=== PATIENT | female | born 1970 | race Caucasian/White ===

== ENCOUNTER 2016-12-26 09:13 | Emergency (ER) | payer MEDICAID ==
[2016-12-26] MEDS ORDERED: Ketorolac 60 MG/2 ML SDV IM ONE (09:41)
--- NOTE | 2016-12-26 09:41 | EDM.PDOC ---
ED HISTORY OF PRESENT ILLNESS - General Chief Complaint: Chest Pain Stated Complaint: CHEST PAIN Time Seen by Provider: 12/26/16 09:27 Source: Reports: Patient, Old records, RN notes reviewed History Limitations: Reports: No limitations - History of Present Illness INITIAL COMMENTS - FREE TEXT/NARRATIVE: 46-year-old female presents emergency Department a complaint of chest pain and palpitations, she has had palpitations in the past going on for some time for this particular event chest pain it's been on-and-off for the last 2 weeks she did have a follow up appointment with her primary care provider today in clinic however at triage she was recommended to report to emergency department for further evaluation. She states the chest pain will come and go it is variable at times at rest and also happens with exertion she does feel short of breath she is not nauseated or diaphoretic the pain is predominately around her left breast area she denies any recent trauma or lifting activities no history of stress test no history of cardiac disease - Related Data Allergies/ADRs: Allergies Allergy/AdvReac Type Severity Reaction Status Date / Time Penicillins Allergy Severe Difficulty Verified 11/23/15 13:49 Breathing amoxicillin [Amoxicillin] Allergy Intermediate Difficulty Verified 11/23/15 13: 49 Breathing clarithromycin [From Biaxin] Allergy Intermediate Rash Verified 11/23/15 13:49 Home Meds: Home Meds Amphetamine/Dextroamphetamine [Adderall] 20 mg PO DAILY 01/08/14 [History] Venlafaxine [Effexor] 75 mg PO DAILY 01/08/14 [History] Venlafaxine [Effexor XR 24 Hr] 37.5 mg PO DAILY 01/10/14 [History] Ibuprofen 800 mg PO ASDIRECTED PRN 09/20/15 [History] Dextroamphetamine/Amphetamine [Adderall Xr 20 mg Capsule] 20 mg PO DAILY [History] 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: , Other (see below) Other OB/BYN History: c-sections x3; hysterectomy approx 12 years ago Musculoskeletal History: Reports: Back pain, chronic Psychiatric History: Reports: Anxiety, Depression Oncologic (Cancer) History: Reports: Cervix - Infectious Disease History Infectious Disease History: Reports: Chicken pox - Past Surgical History Other Female Surgeries/Procedures: KANDICE with left salpingo-oophorectomy Musculoskeletal Surgical History: Reports: Other (see below) Other Musculoskeletal Surgeries/Procedures:: back surgery x2 Oncologic Surgical History: Reports: Other (see below) Other Oncologic Surgeries/Procedures: hysterectomy Social & Family History - Family History Family Medical History: Noncontributory - Tobacco Use Smoking Status *Q: Never Smoker Second Hand Smoke Exposure: No - Caffeine Use Caffeine Use: Reports: Coffee - Alcohol Use Days Per Week of Alcohol Use: 1 Number of Drinks Per Day: 1 Total Drinks Per Week: 1 - Recreational Drug Use Recreational Drug Use: No ED ROS GENERAL - Review of Systems Review Of Systems: See Below Constitutional: Reports: no symptoms HEENT: Reports: No symptoms Respiratory: Reports: shortness of breath. Denies: cough, sputum Cardiovascular: Reports: Chest pain, Dyspnea on exertion GI/Abdominal: Reports: No symptoms : Reports: no symptoms Musculoskeletal: Reports: no symptoms Skin: Reports: no symptoms Neurological: Reports: no symptoms Psychiatric: Denies: Anxiety ED EXAM, GENERAL - Physical Exam Exam: See Below Free Text/Narrative:: General: Female, not in any distress, alert and oriented x3 HEENT: head is atraumatic normocephalic, eyes pupils equal round reactive to light and accommodation sclera clear no conjunctivitis appreciated. Ears tympanic membranes clear and odonnell landmarks and light reflex are present bilaterally canals are clear. Nose no septal deviation, nares are clear, no blood present. Mouth mucosa is moist and pink no erythema or exudate noted in soft palate, tongue is midline uvula is midline, dentition is intact. Neck: Supple no thyromegaly no tracheal deviation. Nodes: Cervical nodes subclavicular nodes nontender no palpable lymphadenopathy noted. Lungs: clear to auscultation bilaterally with symmetrical respirations, no adventitious noise appreciated. CV: Regular rate and rhythm S1 and S2 appreciated no murmurs rubs or gallops noted. Abdomen: Soft, nontender, no palpable masses or organomegaly appreciated, no distention no guarding bowel sounds are present, . Neuro: Cranial nerves II through XII grossly intact Skin: Warm and dry, intact Extremities: No lower extremity edema appreciated, Course - Vital Signs Last Recorded V/S: Last Vital Signs Temp 96.3 F 12/26/16 09:19 Pulse 72 12/26/16 10:23 Resp 20 12/26/16 10:23 BP 133/88 12/26/16 10:23 Pulse Ox 98 12/26/16 10:23 - Orders/Labs/Meds Orders: Active Orders 24 hr Category Date Time Status Cardiac Monitoring [RC] .As Directed Care 12/26/16 09:34 Active EKG Documentation Completion [RC] ASDIRECTED Care 12/26/16 09:37 Active EKG 12 Lead [EK] Stat Ther 12/26/16 09:37 Ordered Labs: Laboratory Tests 12/26/16 12/26/16 12/26/16 Range/Units 09:47 09:47 09:47 WBC 7.0 (4.5-11.0) K/uL RBC 4.25 (3.30-5.50) M/uL Hgb 13.6 (12.0-15.0) g/dL Hct 40.1 (36.0-48.0) % MCV 94 (80-98) fL MCH 32 H (27-31) pg MCHC 34 (32-36) % Plt Count 276 (150-400) K/uL Neut % (Auto) 54 (36-66) % Lymph % (Auto) 37 (24-44) % [place] % (Auto) 7 H (2-6) % Eos % (Auto) 1 L (2-4) % Baso % (Auto) 1 (0-1) % Sodium 141 (140-148) mmol/L Potassium 3.8 (3.6-5.2) mmol/L Chloride 105 (100-108) mmol/L Carbon Dioxide 28 (21-32) mmol/L Anion Gap 8.1 (5.0-14.0) mmol/L BUN 13 (7-18) mg/dL Creatinine 0.8 (0.6-1.0) mg/dL Est Cr Clr Drug Dosing 70.24 mL/min Estimated GFR (MDRD) > 60 (>60) Glucose 87 (74-106) mg/dL Calcium 8.8 (8.5-10.1) mg/dL Total Bilirubin 0.4 D (0.2-1.0) mg/dL AST 15 (15-37) U/L ALT 27 (12-78) U/L Alkaline Phosphatase 37 L (46-116) U/L Troponin I < 0.017 (0.000-0.056) ng/mL Total Protein 7.0 (6.4-8.2) g/dL Albumin 3.7 (3.4-5.0) g/dL Globulin 3.3 (2.3-3.5) g/dL Albumin/Globulin Ratio 1.1 L (1.2-2.2) TSH, Ultra Sensitive 1.430 (0.358-3.740) uIU/mL Meds: Medications Discontinued Medications Generic Name Dose Route Start Last Admin Trade Name Jacques PRN Reason Stop Dose Admin Ketorolac Tromethamine 60 mg 12/26/16 09:41 12/26/16 09:45 Toradol IM 12/26/16 09:42 60 mg ONETIME ONE Administration Departure - Departure Time of Disposition: 11:10 Disposition: Home, Self-Care 01 Condition: good Clinical Impression: Chest pain Qualifiers: Chest pain type: unspecified Qualified Code(s): R07.9 - Chest pain, unspecified Forms: ED Department Discharge Additional Instructions: Try the Flexeril as needed for muscle relaxants if it helps with pain, please follow up with her primary care provider this afternoon for further evaluation, the hospital we'll call you with an appointment time for your stress test. - My Orders Last 24 Hours: My Active Orders 12/26/16 09:34 Cardiac Monitoring [RC] .As Directed 12/26/16 09:37 EKG Documentation Completion [RC] ASDIRECTED EKG 12 Lead [EK] Stat - Assessment/Plan Last 24 Hours: My Active Orders 12/26/16 09:34 Cardiac Monitoring [RC] .As Directed 12/26/16 09:37 EKG Documentation Completion [RC] ASDIRECTED EKG 12 Lead [EK] Stat Plan: Assessment Acuity = acute Site and laterality = chest pain left shoulder pain Etiology = unclear etiology Manifestations = none Location of injury = home Lab values = CBC, CMP, EKG, chest x-ray showed no acute process Plan I did review lab work EKG and chest x-ray results of her discussed options recommend keep her followup appointment with her primary care this afternoon, we did set up a stress test in the future exercise Cardiolite also prescription for Flexeril 10 mg by mouth 3 times a day when necessary Patient was in agreement with the plan all questions were answered, they were instructed to return to the emergency department or call for worsening symptoms. This note was dictated using [employer] voice recognition software please call with any questions.
--- NOTE | 2016-12-26 10:05 | CR ---
Chest 2V HISTORY: Chest pain COMPARISON: 09/20/2015. FINDINGS: Cardiac size and pulmonary vessels normal. There are no infiltrates or effusions. No pneum othorax. The osseous structures appear normal. IMPRESSION: No acute pulmonary disease.
[2016-12-26 10:24] VITALS: BP 133/88
== END 2016-12-26 11:27 | disposition home or self-care (01) ==
LOC: JP.ED 09:13
DX: R07.9 Chest pain, unspecified (principal); F32.9 Major depressive disorder, single episode, unspecified; F41.9 Anxiety disorder, unspecified; Z90.710 Acquired absence of both cervix and uterus; Z85.41 Personal history of malignant neoplasm of cervix uteri; Z79.899 Other long term (current) drug therapy; Z88.0 Allergy status to penicillin; Z88.1 Allergy status to other antibiotic agents
CPT/HCPCS: 36415; 71020; 80053; 84443; 84484; 85025; 93005; 96372; 99285; J1885

== ENCOUNTER 2017-09-05 07:29 | Day surgery (SDC) | payer MEDICAID ==
[2017-09-05] MEDS ORDERED: Dextrose 5%-Lactated Ringers 1,000 ML IV SCH (08:00)
[2017-09-05] MEDS ORDERED: Glycopyrrolate 0.2 MG/ML 2 ML SDV IVPUSH ONE (08:00)
[2017-09-05] MEDS ORDERED: Midazolam 1 MG/ML 2 ML SDV ONE (10:01)
[2017-09-05] MEDS ORDERED: Propofol 200 MG/20 ML SDV ONE (10:01)
[2017-09-05] MEDS ORDERED: fentaNYL 100 MCG/2 ML SDV ONE (10:01)
[2017-09-05 11:14] VITALS: BP 121/94
--- NOTE | 2017-09-07 13:08 | OR ---
DATE OF PROCEDURE: 09/05/2017 PREOPERATIVE DIAGNOSIS: Recurrent heartburn status post Carol Ann fundoplication. POSTOPERATIVE DIAGNOSES: 1. Intact Carol Ann fundoplication with mild recurrent inflammation at the esophagogastric junction. 2. Large amount of retained gastric food particles with bile consistent with gastroparesis. OPERATIVE PROCEDURE: Esophagogastroduodenoscopy with biopsy of the esophagogastric junction. ANESTHESIA: IV sedation. INDICATIONS FOR PROCEDURE: The patient is status post Carol Ann fundoplication in 2002. She presents now with some worsening heartburn symptoms. Once again, she was prescribed omeprazole, but this was just yesterday and she has not started that yet. Plan is to proceed with upper GI endoscopy with biopsies as indicated. Potential risks including bleeding and perforation were discussed, and the patient wishes to proceed. DETAILS OF PROCEDURE: The patient was taken to the operating room and placed in a left lateral decubitus position. IV sedation was administered after which the upper GI endoscope was passed orally through the length of the esophagus into the stomach with retroflexion view of the fundus, thereafter, through the pyloric channel roughly to the junction of the 3rd and 4th portions of the duodenum. Findings included normal hypopharynx, larynx, and upper esophageal sphincter, and esophageal body at the EG junction. There was a persistent intact Carol Ann effect over the distalmost esophagus. There was however some evidence of recurrent reflux disease in terms of mucosa being somewhat friable and reddened and edematous. The scope easily passed through the Carol Ann and retroflexion once again confirmed the Carol Ann effect. Within the stomach, it was remarkable there was quite a bit in the way of retained bile as well as some solid food particles suggestive of a component of gastroparesis. Otherwise, the stomach was not significantly inflamed and the pyloric channel and the duodenum to the junction of the 3rd and 4th portions were unremarkable. At this point, biopsies were obtained from the EG junction area, sent for histologic evaluation. Minimal bleeding from the biopsy site was seen and the procedure was then concluded. The patient will be initiated on the omeprazole treatment and we will just see to what extent that is efficacious. Follow up will be with Dr. Frias at [facility] to see how that is going and then develop treatment plan from that point forward. Bebeto Frias MD /[id number]
== END 2017-09-05 11:32 | disposition home or self-care (01) ==
LOC: JP.SDS 07:29
PROVIDERS: ATTEND Surgery
DX: K21.9 Gastro-esophageal reflux disease without esophagitis (principal); Z88.0 Allergy status to penicillin; Z88.1 Allergy status to other antibiotic agents; Z98.890 Other specified postprocedural states
CPT/HCPCS: 43239; J2250; J2704; J3010; J7042; 88305; J3490

== ENCOUNTER 2017-11-10 05:32 | Inpatient (IN) | payer MEDICAID ==
[2017-11-10] MEDS ORDERED: Dextrose 5%-Lactated Ringers 1,000 ML IV SCH (06:00)
[2017-11-10] MEDS ORDERED: Celecoxib 200 MG Cap PO ONE (06:00)
[2017-11-10] MEDS ORDERED: Acetaminophen 500 MG Tab PO ONE (06:00)
[2017-11-10] MEDS ORDERED: Gabapentin 300 MG Cap PO ONE (06:00)
[2017-11-10] MEDS ORDERED: Scopolamine 1.5 MG Transdermal Patch TOP SCH (06:00)
[2017-11-10] MEDS ORDERED: Neostigmine Methylsulfate 1 MG/ML 5 ML Syringe ONE (07:10)
[2017-11-10] MEDS ORDERED: Dexamethasone 4 MG/ML SDV ONE (07:10)
[2017-11-10] MEDS ORDERED: Propofol 200 MG/20 ML SDV ONE (07:10)
[2017-11-10] MEDS ORDERED: Succinylcholine 200 MG/10 ML MDV ONE (07:10)
[2017-11-10] MEDS ORDERED: Rocuronium 50 MG/5 ML Vial ONE (07:10)
[2017-11-10] MEDS ORDERED: Glycopyrrolate 0.2 MG/ML 5 ML MDV ONE (07:10)
[2017-11-10] MEDS ORDERED: Ondansetron 4 MG/2 ML SDV ONE (07:10)
[2017-11-10] MEDS ORDERED: Lactated Ringers 1,000 ML ONE ×2 (07:14→08:23)
[2017-11-10] MEDS ORDERED: cefOXitin 2 GM in Sodium Chloride 0.9% 50 ML IV ONE (08:00)
[2017-11-10] MEDS ORDERED: Ketamine 500 MG/5 ML MDV IV SCH (08:00)
[2017-11-10] MEDS ORDERED: Lidocaine 2% 100 MG/5 ML Syringe IVPUSH ONE (08:00)
[2017-11-10] MEDS ORDERED: Ropivacaine 40 ML, Dexamethasone 8 MG, EPINEPHrine 0.4 MG, Sodium Chloride 0.9% 37.6 ML NERVRT SCH ×4 (08:00)
[2017-11-10] MEDS ORDERED: cefOXitin 2 GM Vial ONE (08:24)
[2017-11-10] MEDS ORDERED: hydrOXYzine HCl 100 MG/2 ML SDV IM ONE (10:00)
[2017-11-10] MEDS ORDERED: fentaNYL 100 MCG/2 ML SDV IVPUSH ONE (10:40)
[2017-11-10] MEDS ORDERED: Pantoprazole 40 MG Vial IVPUSH SCH (12:00)
[2017-11-10] MEDS ORDERED: hydrOXYzine HCl 100 MG/2 ML SDV IM PRN (12:00)
[2017-11-10] MEDS ORDERED: diphenhydrAMINE 50 MG/ML SDV IVPUSH PRN (12:00)
[2017-11-10] MEDS ORDERED: Labetalol 20 MG/4 ML Syringe IVPUSH PRN (12:00)
[2017-11-10] MEDS ORDERED: Metoclopramide 10 MG/2 ML SDV IVPUSH PRN (12:00)
[2017-11-10] MEDS: Lidocaine 0.4%/D5W 2 GM/500 ML BAG IV SCH (12:47)
[2017-11-10] MEDS: Acetaminophen Soln 650 MG/20.3 ML UD Cup PO SCH ×2 (12:47→17:42)
[2017-11-10] MEDS: Dextrose 5%-Lactated Ringers 1,000 ML IV SCH ×2 (13:05→22:28)
[2017-11-10] MEDS: Gabapentin 250 MG/5 ML Solution ML 470 ML Bottle PO SCH ×2 (14:01→20:11)
[2017-11-10] MEDS: cefOXitin 2 GM in Sodium Chloride 0.9% 50 ML IV SCH ×2 (14:01→20:10)
[2017-11-10] MEDS ORDERED: MVI, Adult with Vitamin K 10 ML, Thiamine 200 MG, Chromium/Copper/Mang/Selen/Zn 1 ML in... IV SCH ×4 (16:00)
[2017-11-10] MEDS: Heparin Sodium 5,000 Units/ML Vial SUBCUT SCH (17:41)
[2017-11-10] MEDS: Ondansetron 4 MG/2 ML SDV IVPUSH PRN (17:46)
[2017-11-11] MEDS: Lidocaine 0.4%/D5W 2 GM/500 ML BAG IV SCH (00:14)
[2017-11-11] MEDS: Acetaminophen Soln 650 MG/20.3 ML UD Cup PO SCH ×4 (00:16→18:00)
[2017-11-11] MEDS: cefOXitin 2 GM in Sodium Chloride 0.9% 50 ML IV SCH ×2 (01:46→09:39)
[2017-11-11] MEDS ORDERED: Iohexol 647 MG/ML 50 ML SDV PO STA (03:19)
[2017-11-11] MEDS: Ondansetron 4 MG/2 ML SDV IVPUSH PRN ×2 (04:12→11:34)
[2017-11-11] MEDS: Heparin Sodium 5,000 Units/ML Vial SUBCUT SCH ×2 (05:10→18:00)
[2017-11-11] MEDS: Dextrose 5%-Lactated Ringers 1,000 ML IV SCH (05:10)
--- NOTE | 2017-11-11 07:34 | PCM.SURGPN ---
- General Info Date of Service: 11/11/17 Date of Surgery/Procedure: 11/10/17 POD#: 1 Post-Op Diagnosis: Carol Ann funduplocation repair and scarlett-en-y revision Functional Status: Reports: Pain Controlled, Tolerating Diet - Review of Systems General: Reports: No Symptoms Pulmonary: Reports: No Symptoms Cardiovascular: Reports: No Symptoms Gastrointestinal: Reports: Difficulty Swallowing Genitourinary: Reports: No Symptoms Psychiatric: Reports: No Symptoms - Patient Data Vitals - Most Recent: Last Vital Signs Temp 99 F 11/11/17 05:00 Pulse 92 11/11/17 07:00 Resp 18 11/11/17 07:00 BP 132/70 11/11/17 07:00 Pulse Ox 93 L 11/11/17 07:00 Weight - Most Recent: 176 lb 12.795 oz I&O - Last 24 Hours: Intake & Output 11/10/17 11/11/17 11/11/17 22:59 06:59 14:59 Intake Total 2362 1195 Output Total 60 590 Balance 2302 605 Med Orders - Current: Current Medications Acetaminophen (Tylenol) 650 mg PO Q6H [facility] Last Admin: 11/11/17 05:10 Dose: 650 mg Celecoxib (Celebrex) 200 mg PO DAILY@0800 [facility] Cyanocobalamin (Vitamin B12) 1,000 mcg IM ONETIME ONE Stop: 11/12/17 09:01 Diphenhydramine HCl (Benadryl) 25 - 50 mg IVPUSH Q4H PRN PRN Reason: ITCHING Gabapentin (Neurontin) 300 mg PO TID [facility] Last Admin: 11/10/17 20:11 Dose: 300 mg Heparin Sodium (Porcine) (Heparin Sodium) 5,000 units SUBCUT Q12H [facility] Last Admin: 11/11/17 05:10 Dose: 5,000 units Hydroxyzine HCl (Vistaril) 75 - 100 mg IM Q4H PRN PRN Reason: pain Lidocaine HCl/Dextrose (Lidocaine 2 Gm/D5w 500 Ml) 2 gm in 500 mls @ 30 mls/hr IV .[id number] [facility] PRN Reason: 2 MG/MIN Stop: 11/11/17 11:00 Last Admin: 11/11/17 00:14 Dose: 2 mg/min, 30 mls/hr Dextrose/Lactated Ringer's (Dextrose 5%-Lactated Ringers) 1,000 mls @ 175 mls/ hr IV ASDIRECTED [facility] Last Admin: 11/11/17 05:10 Dose: 175 mls/hr Multivitamins/Minerals 10 ml/Thiamine HCl 200 mg/ Chromium/Copper/Manganese/ Seleni/Zn 1 ml/ Dextrose/Lactated Ringer's 1,013 mls @ 175 mls/hr IV DAILY@ 1600 [facility] Last Admin: 11/10/17 16:11 Dose: 175 mls/hr Cefoxitin Sodium 2 gm/ Sodium (Chloride) 50 mls @ 100 mls/hr IV Q6H [facility] Stop: 11/11/17 08:29 Last Admin: 11/11/17 01:46 Dose: 100 mls/hr Labetalol HCl (Normodyne) 5 - 15 mg IVPUSH Q1H PRN PRN Reason: SBP over 160 OR DBP over 95 Metoclopramide HCl (Reglan) 10 mg IVPUSH Q6H PRN PRN Reason: NAUSEA NOT CONTROL BY ZOFRAN Miscellaneous Information (Remove Patch) 1 ea TRDERM ONETIME ONE Stop: 11/12/17 10:01 Scopolamine Patch (Check) 1 each TOP DAILY [facility] Stop: 11/12/17 12:01 Ondansetron HCl (Zofran) 4 mg IVPUSH Q4H PRN PRN Reason: Nausea/Vomiting Last Admin: 11/11/17 04:12 Dose: 4 mg Pantoprazole Sodium (Protonix Iv) 40 mg IVPUSH Q24H [facility] Last Admin: 11/10/17 12:47 Dose: 40 mg Scopolamine (Transderm-Scop) 1.5 mg TOP Q72H [facility] Stop: 11/12/17 10:00 Last Admin: 11/10/17 05:59 Dose: 1.5 mg Discontinued Medications Acetaminophen (Tylenol Extra Strength) 1,000 mg PO ONETIME ONE Stop: 11/10/17 06:01 Last Admin: 11/10/17 05:59 Dose: 1,000 mg Cefoxitin Sodium (Mefoxin) Confirm Administered Dose 2 gm .ROUTE .STK-MED ONE Stop: 11/10/17 08:25 Last Admin: 11/10/17 10:34 Dose: 2 gm Celecoxib (Celebrex) 200 mg PO ONETIME ONE Stop: 11/10/17 06:01 Last Admin: 11/10/17 05:59 Dose: 200 mg Ropivacaine 40 ml/Dexamethasone 8 mg/Epinephrine HCl 0.4 mg/ Sodium Chloride 37.6 ml 0 ml [facility] Last Admin: 11/10/17 07:50 Dose: 80 syringe Dexamethasone (Dexamethasone) Confirm Administered Dose 4 mg .ROUTE .[facility] ONE Stop: 11/10/17 07:11 Fentanyl (Sublimaze) 100 mcg IVPUSH ONETIME ONE Stop: 11/10/17 10:41 Last Admin: 11/10/17 10:33 Dose: 100 mcg Fentanyl Citrate (Fentanyl) Confirm Administered Dose 500 mcg .ROUTE .[facility] ONE Stop: 11/10/17 07:10 Gabapentin (Neurontin) 300 mg PO ONETIME ONE Stop: 11/10/17 06:01 Last Admin: 11/10/17 05:59 Dose: 300 mg Glycopyrrolate (Robinul) Confirm Administered Dose 1 mg .ROUTE .[facility] ONE Stop: 11/10/17 07:11 Hydroxyzine HCl (Vistaril) 100 mg IM ONETIME ONE Stop: 11/10/17 10:01 Last Admin: 11/10/17 10:10 Dose: 100 mg Dextrose/Lactated Ringer's (Dextrose 5%-Lactated Ringers) 1,000 mls @ 100 mls[facility] Admin: 11/10/17 07:00 Dose: 100 mls/hr Cefoxitin Sodium 2 gm/ Sodium (Chloride) 50 mls @ 100 mls/hr IV ONETIME ONE Stop: 11/10/17 08:29 Last Admin: 11/10/17 07:50 Dose: 100 mls/hr Ketamine HCl 100 mg/ Sodium (Chloride) 100 mls @ 15 mls/hr IV [facility] PRN Reason: 5 MCG/KG/MIN Lactated Ringer's (Ringers, Lactated) Confirm Administered Dose 1,000 mls @ as directed .ROUTE .[facility] ONE Stop: 11/10/17 07:15 Lactated Ringer's (Ringers, Lactated) Confirm Administered Dose 1,000 mls @ as directed .ROUTE .[facility] ONE Stop: 11/10/17 08:24 Iohexol (Omnipaque-300) 50 ml PO .ASDIRECTED STA Stop: 11/11/17 03:20 Ketamine HCl (Ketalar) 25 mg IV ASDIRECTED [facility] Lidocaine HCl (Xylocaine 2%) 90 mg IVPUSH ONETIME ONE Stop: 11/10/17 08:01 Last Admin: 11/10/17 12:40 Dose: Not Given Neostigmine Methylsulfate (Neostigmine) Confirm Administered Dose 5 mg .ROUTE .STK-MED ONE Stop: 11/10/17 07:11 Ondansetron HCl (Zofran) Confirm Administered Dose 4 mg .ROUTE .STK-MED ONE Stop: 11/10/17 07:11 Propofol (Diprivan 20 Ml) Confirm Administered Dose 200 mg .ROUTE .STK-MED ONE Stop: 11/10/17 07:11 Rocuronium Hibbs (Zemuron) Confirm Administered Dose 50 mg .ROUTE .STK-MED ONE Stop: 11/10/17 07:11 Succinylcholine Chloride (Quelicin) Confirm Administered Dose 200 mg .ROUTE .STK -MED ONE Stop: 11/10/17 07:11 - Exam Wound/Incisions: Healing Well General: Alert, Oriented Neck: Supple Lungs: Clear to Auscultation, Normal Respiratory Effort Cardiovascular: Regular Rate, Regular Rhythm Neurological: No New Focal Deficit Psy/Mental Status: Alert, Normal Affect, Normal Mood - Problem List Review Problem List Initiated/Reviewed/Updated: Yes - My Orders Last 24 Hours: Active Orders 24 hr Category Date Time Status Patient Status [ADT] Routine ADT 11/10/17 10:10 Active Ambulate [RC] PER UNIT ROUTINE Care 11/10/17 11:48 Active Cardiac Monitoring Discontinue [RC] Click to Edit Care 11/11/17 09:00 Active Cardiac Monitoring [RC] .As Directed Care 11/10/17 11:48 Active Communication Order [RC] ASDIRECTED Care 11/12/17 04:00 Active Communication Order [RC] Q4H Care 11/10/17 11:48 Active Communication Order [RC] ROUTINE Care 11/10/17 11:48 Active Drain Management [RC] ASDIRECTED Care 11/10/17 11:48 Active Notify Provider Intake and Out [RC] ASDIRECTED Care 11/10/17 11:48 Active Notify Provider [RC] PRN Care 11/10/17 11:48 Active Oxygen Therapy [RC] ASDIRECTED Care 11/10/17 11:48 Active Pulse Oximetry [RC] ASDIRECTED Care 11/10/17 11:48 Active RT BiPAP/CPAP [RC] ASDIRECTED Care 11/10/17 11:48 Active RT Incentive Spirometry [RC] ASDIRECTED Care 11/10/17 11:48 Active Turn, Cough, Deep Breathe [RC] .PRN Care 11/10/17 11:48 Active Up to Chair [RC] QID Care 11/10/17 11:48 Active Vital Signs [RC] Q1HR Care 11/10/17 11:48 Active Consult to Bariatric Services [CONS] Routine Cons 11/10/17 11:48 Active Consult to Abnormal Psychology Teacher [CONS] Routine Cons 11/10/17 11:48 Active Consult to Pharmacy [CONS] Routine Cons 11/10/17 11:48 Active Bariatric Diet [DIET] Diet 11/10/17 Dinner Active UGI wo KUB [CR] Timed Exams 11/11/17 04:00 Taken Acetaminophen [Tylenol] Med 11/10/17 12:00 Active 650 mg PO Q6H Celecoxib [CeleBREX] Med 11/11/17 08:00 Active 200 mg PO DAILY@0800 Cyanocobalamin (Vitamin B12) [Vitamin B12] Med 11/12/17 09:00 Once 1,000 mcg IM ONETIME ONE Dextrose 5%-Lactated Ringers 1,000 ml Med 11/10/17 12:00 Active IV ASDIRECTED Gabapentin [Neurontin] Med 11/10/17 14:00 Active 300 mg PO TID Heparin Sodium Med 11/10/17 18:00 Active 5,000 units SUBCUT Q12H Labetalol [Normodyne] Med 11/10/17 12:00 Active 5 - 15 mg IVPUSH Q1H PRN Lidocaine 0.4%/D5W [Lidocaine 2 GM/D5W 500 ML] Med 11/10/17 08:00 Active 2 gm in 500 ml IV 2 mg/min MVI, Adult with Vitamin K [Infuvite Adult] 10 ml Med 11/10/17 16:00 Active Thiamine [Vitamin B-1] 200 mg Chromium/Copper/Riki/Selen/Zn [Multitrace-5 Concentrate ] 1 ml Dextrose 5%-Lactated Ringers 1,000 ml IV DAILY@1600 Metoclopramide [Reglan] Med 11/10/17 12:00 Active 10 mg IVPUSH Q6H PRN Non-Formulary Medication [NF Drug] Med 11/10/17 12:00 Active 1 each TOP DAILY Ondansetron [Zofran] Med 11/10/17 12:00 Active 4 mg IVPUSH Q4H PRN Pantoprazole [ProTONIX IV] Med 11/10/17 12:00 Active 40 mg IVPUSH Q24H Remove Patch Med 11/12/17 10:00 Once 1 ea TRDERM ONETIME ONE cefOXitin [Mefoxin] 2 gm Med 11/10/17 14:00 Active Sodium Chloride 0.9% [Normal Saline] 50 ml IV Q6H diphenhydrAMINE [Benadryl] Med 11/10/17 12:00 Active 25 - 50 mg IVPUSH Q4H PRN hydrOXYzine HCl [Vistaril] Med 11/10/17 12:00 Active 75 - 100 mg IM Q4H PRN Abdominal Binder [OM.PC] Routine Oth 11/10/17 11:48 Ordered PT Screening [OM.PC] Routine Oth 11/10/17 11:48 Active Sequential Compression Device [OM.PC] Routine Oth 11/10/17 11:48 Ordered Specialty Bed [OM.PC] Routine Oth 11/10/17 11:48 Ordered Resuscitation Status Routine Resus Stat 11/10/17 11:47 Ordered Medication Orders Acetaminophen (Tylenol) 650 mg PO Q6H [facility] Last Admin: 11/11/17 05:10 Dose: 650 mg Admin: 11/11/17 00:16 Dose: Not Given Admin: 11/10/17 17:42 Dose: 650 mg Admin: 11/10/17 12:47 Dose: 650 mg Celecoxib (Celebrex) 200 mg PO DAILY@0800 [facility] Cyanocobalamin (Vitamin B12) 1,000 mcg IM ONETIME ONE Stop: 11/12/17 09:01 Diphenhydramine HCl (Benadryl) 25 - 50 mg IVPUSH Q4H PRN PRN Reason: ITCHING Gabapentin (Neurontin) 300 mg PO TID [facility] Last Admin: 11/10/17 20:11 Dose: 300 mg Admin: 11/10/17 14:01 Dose: 300 mg Heparin Sodium (Porcine) (Heparin Sodium) 5,000 units SUBCUT Q12H [facility] Last Admin: 11/11/17 05:10 Dose: 5,000 units Admin: 11/10/17 17:41 Dose: 5,000 units Hydroxyzine HCl (Vistaril) 75 - 100 mg IM Q4H PRN PRN Reason: pain Lidocaine HCl/Dextrose (Lidocaine 2 Gm/D5w 500 Ml) 2 gm in 500 mls @ 30 mls/hr IV .[id number] [facility] PRN Reason: 2 MG/MIN Stop: 11/11/17 11:00 Last Admin: 11/11/17 00:14 Dose: 2 mg/min, 30 mls/hr Infusion: 11/11/17 00:14 Dose: 2 mg/min, 30 mls/hr Admin: 11/10/17 12:47 Dose: 2 mg/min, 30 mls/hr Dextrose/Lactated Ringer's (Dextrose 5%-Lactated Ringers) 1,000 mls @ 175 mls/ hr IV ASDIRECTED [facility] Last Admin: 11/11/17 05:10 Dose: 175 mls/hr Infusion: 11/11/17 04:11 Dose: 175 mls/hr Admin: 11/10/17 22:28 Dose: 175 mls/hr Infusion: 11/10/17 18:48 Dose: 175 mls/hr Admin: 11/10/17 13:05 Dose: 175 mls/hr Multivitamins/Minerals 10 ml/Thiamine HCl 200 mg/ Chromium/Copper/Manganese/ Seleni/Zn 1 ml/ Dextrose/Lactated Ringer's 1,013 mls @ 175 mls/hr IV DAILY@ 1600 [facility] Last Admin: 11/10/17 16:11 Dose: 175 mls/hr Cefoxitin Sodium 2 gm/ Sodium (Chloride) 50 mls @ 100 mls/hr IV Q6H [facility] Stop: 11/11/17 08:29 Last Admin: 11/11/17 01:46 Dose: 100 mls/hr Admin: 11/10/17 20:10 Dose: 100 mls/hr Admin: 11/10/17 14:01 Dose: 100 mls/hr Labetalol HCl (Normodyne) 5 - 15 mg IVPUSH Q1H PRN PRN Reason: SBP over 160 OR DBP over 95 Metoclopramide HCl (Reglan) 10 mg IVPUSH Q6H PRN PRN Reason: NAUSEA NOT CONTROL BY ZOFRAN Miscellaneous Information (Remove Patch) 1 ea TRDERM ONETIME ONE Stop: 11/12/17 10:01 Scopolamine Patch (Check) 1 each TOP DAILY [facility] Stop: 11/12/17 12:01 Ondansetron HCl (Zofran) 4 mg IVPUSH Q4H PRN PRN Reason: Nausea/Vomiting Last Admin: 11/11/17 04:12 Dose: 4 mg Admin: 11/10/17 17:46 Dose: 4 mg Pantoprazole Sodium (Protonix Iv) 40 mg IVPUSH Q24H [facility] Last Admin: 11/10/17 12:47 Dose: 40 mg Scopolamine (Transderm-Scop) 1.5 mg TOP Q72H [facility] Stop: 11/12/17 10:00 Last Admin: 11/10/17 05:59 Dose: 1.5 mg - Assessment Assessment (Free Text/Narrative):: Difficulty swallowing--explained to pt this is to be expected. Ambulating well. Pain well-controlled with lidocaine and tylenol. Urinating-well Bowel movements/flatus-none Diet: clear liquids, transition to step 2 diet - Plan Plan (Free Text/Narrative):: Diet: Step 2 w/ no solids for 10d-2weeks Lungs: incentive spirometry 10times per hour every hour Ambulate 6X/day. [place] for pain control. Monitor urination/bowel movements. Dispo: discharge tomorrow Medical management: resume home meds
[2017-11-11] MEDS ORDERED: Dextrose 5%-Lactated Ringers 1,000 ML IV SCH (07:45)
--- NOTE | 2017-11-11 08:50 | CR ---
UGI wo KUB HISTORY: eval R -Y GBP FINDINGS: Limited upper GI series was obtained without fluoroscopy. Water-soluble contrast was admini stered orally. Immediate along with 15 minute delayed images were obtained. Small gastric pouch is de monstrated. Contrast passes readily through the gastrojejunostomy into loops of jejunum. No obstructi on is identified. There is no contrast extravasation. Surgical drain is noted left upper quadrant. Th ere are surgical clips right upper quadrant consistent with prior cholecystectomy. IMPRESSION: No postoperative complication identified status post Adelita-en-Y gastric bypass.
[2017-11-11] MEDS: Venlafaxine 37.5 MG Cap.ER PO SCH (09:39)
[2017-11-11] MEDS: Venlafaxine 75 MG Tab PO SCH (09:39)
[2017-11-11] MEDS: Gabapentin 250 MG/5 ML Solution ML 470 ML Bottle PO SCH ×3 (09:40→21:23)
[2017-11-11] MEDS: Amphetamine/Dextroamphetamine Salts 10 MG Cap.ER PO SCH (09:42)
[2017-11-11] MEDS: Celecoxib 200 MG Cap PO SCH (11:04)
[2017-11-11] MEDS: SCOPOLAMINE PATCH CHECK TOP SCH (11:20)
[2017-11-11] MEDS: Pantoprazole 40 MG Delayed-Release Granules 1 Packet PO SCH (13:30)
[2017-11-11] MEDS ORDERED: MVI, Adult with Vitamin K 10 ML, Thiamine 200 MG, Chromium/Copper/Mang/Selen/Zn 1 ML in... IV SCH ×4 (16:00)
[2017-11-12] MEDS: Acetaminophen Soln 650 MG/20.3 ML UD Cup PO SCH ×2 (02:06→05:57)
[2017-11-12] MEDS: Heparin Sodium 5,000 Units/ML Vial SUBCUT SCH (05:57)
[2017-11-12] MEDS: Celecoxib 200 MG Cap PO SCH (07:59)
[2017-11-12] MEDS: Venlafaxine 37.5 MG Cap.ER PO SCH (08:50)
[2017-11-12] MEDS: Venlafaxine 75 MG Tab PO SCH (08:50)
[2017-11-12] MEDS: SCOPOLAMINE PATCH CHECK TOP SCH (08:54)
[2017-11-12] MEDS: Amphetamine/Dextroamphetamine Salts 10 MG Cap.ER PO SCH (08:54)
[2017-11-12] MEDS: Gabapentin 250 MG/5 ML Solution ML 470 ML Bottle PO SCH (08:57)
[2017-11-12] MEDS ORDERED: Cyanocobalamin (Vitamin B12) 1,000 MCG/ML SDV IM ONE (09:00)
--- NOTE | 2017-11-12 09:26 | DISCH ---
ADMISSION DIAGNOSES: Failed Laparoscopic Carol Ann, ADD, ADHD, dysthymic disorder, physical deconditioning, obesity BMI 34.9, status post right L4-L5 diskectomy 12/20/2014. DISCHARGE DIAGNOSES: Diagnostic laparoscopy with takedown of previous Carol Ann fundoplication and esophageal gastrectomy with Adelita-en-Y jejunostomy and repair of recurrent diaphragmatic hernia for recurrent GERD within the proximal stomach and paraesophageal diaphragmatic hernia on 11/10/2017. HISTORY: Agueda Young had a laparoscopic Carol Ann with recurrent GERD refractory to medical management. After preoperative evaluation and discussion of the possible risks and possible complications, she wished to proceed with surgical procedure. HOSPITAL COURSE: Agueda had her surgery on 11/10/2017. She had no operative complications. On postop day #1, her upper GI was normal. She was started on a step-2 with no cereal gastric bypass diet. She received dietary instruction. On postop day #2, she was able to be discharged to home. Vital signs were stable, oral intake adequate, pain was well managed, and activity was good. PHYSICAL EXAMINATION: GENERAL: Agueda Young is a 47-year-old female. VITAL SIGNS: Height is 5 feet 1.8 inches. Weight is 176 pounds 12.79 ounces. TPR is 98.2, 88, 18. Blood pressure 115/87. HEENT: Negative. NECK: Supple. HEART: Regular rate and rhythm. LUNGS: Clear. ABDOMEN: Dressing was taken down. Sutures in place. KENYETTA drain is intact, draining a light pink serosanguineous drainage, and this will be removed prior to discharge. Abdominal binder has been on. EXTREMITIES: Without peripheral edema. DISPOSITION: Discharged to home. CONDITION: Stable and improving. FOLLOWUP: With Cristal Hart PA-C on 11/24/2017 at 10:00 a.m. DISCHARGE MEDICATIONS: New prescriptions: 1. Tylenol 650 mg q.6 hours p.r.n. pain. 2. Celebrex 200 mg p.o. daily #14. She is to resume her home medication of: 1. Adderall XR 20 mg p.o. daily. 2. Omeprazole 40 mg oral at bedtime. 3. Effexor XR 37.5 mg oral daily. 4. Effexor 75 mg oral daily. DISCHARGE DIET: Diet after discharge, step 2 gastric bypass diet with no cereal. Drink 8 to 10 glasses of water a day. ACTIVITY: As tolerated. No lifting greater than 10 pounds for 2 weeks. Driving, do not drive for 1 week. Shower/bathing, may shower. Notify provider if any fever, increased pain, nausea, or vomiting. Wound incision care, keep site clean and dry. Wear abdominal binder for 2 weeks and then as tolerated. Special instruction; use incentive spirometer 10 times every hour while awake for 2 weeks. Keep a journal of protein and liquid intake and bring to clinic appointments.
[2017-11-12 11:25] VITALS: BP 129/82
[2017-11-12] MEDS: Pantoprazole 40 MG Delayed-Release Granules 1 Packet PO SCH (12:41)
[2017-11-12] MEDS ORDERED: Acetaminophen 160 MG Tab,Disintegrating PO ONE (12:45)
--- NOTE | 2017-11-12 15:49 | PN ---
DATE OF SERVICE: 11/11/2017 The patient has been afebrile with stable vital signs, status post esophagogastrectomy for recurrent gastroesophageal reflux disease, yesterday. Clinically, no major problems were noted. She complains of a little bit of dysphagia as one might expect, but the upper GI x- ray looks good and is emptying satisfactorily with no evidence of leaks. She continues on the lidocaine infusion for another few hours, otherwise, is receiving the Celebrex and gabapentin. Will go up to a step-2 diet, but without any solids, maximize activity and work with pulmonary toilet. Bebeto Frias MD /[id number]
--- NOTE | 2017-11-13 11:20 | OR ---
DATE OF PROCEDURE: 11/10/2017 PREOPERATIVE DIAGNOSIS: Recurrent gastroesophageal reflux disease, status post previous Carol Ann fundoplication. POSTOPERATIVE DIAGNOSES: 1. Recurrent gastroesophageal reflux disease, status post previous Carol Ann fundoplication with proximal stomach and esophagogastric junction unsatisfactory for a redo Carol Ann fundoplication, status post takedown of previous fundoplication. 2. Paraesophageal diaphragmatic hernia. PROCEDURE PERFORMED: Diagnostic laparoscopy with takedown of previous Carol Ann fundoplication and: 1. Esophagogastrectomy with Adelita-en-Y esophagojejunostomy (41681). 2. Repair of recurrent diaphragmatic hernia (78341). ANESTHESIA: General. JEWELRY APPRAISER: Cristal Hart PA-C and MIGNON Crowe3. INDICATION FOR PROCEDURE: This is a 47-year-old female presenting with recurrent gastroesophageal reflux disease, several years after a previous Carol Ann fundoplication. Over the last couple years, she has had progressive reflux disease that has become refractory to medical management. She was also noted, on recent endoscopy, to have some retained food within the stomach, indicating probable component of gastroparesis as well. The plan is to proceed with a diagnostic laparoscopy with takedown of previous Carol Ann fundoplication and, based on operative findings, either redoing the Carol Ann fundoplication or in case the tissue, following takedown of the fundoplication, is unsatisfactory in terms of blood supply and general appearance, we would then proceed with a proximal gastrectomy or possible esophagogastrectomy, depending on the proximal plane of adequate tissue with a Adelita-en-Y reconstruction, which would also satisfactorily controlled the reflux symptoms. Potential risks of the procedure including bleeding, infection, leaks from various GI tract closures, problems with persistence or recurrence of reflux over time, as well as possibility of cardiopulmonary, septic, or hemorrhagic complications leading to were discussed, and the patient wishes to proceed. DETAILS OF PROCEDURE: The patient was taken to the operating room and placed in a supine position. After general endotracheal anesthesia was induced, she was converted to a lithotomy position and the abdomen prepped and draped. Three fingerbreadths left of the umbilicus, a transverse incision was made and the peritoneal cavity entered under direct vision with an Optiview trocar, inflated to 15 mmHg pressure of CO2. The patient was noted to have some minimal adhesions of the omentum to the right lateral abdominal wall, which would otherwise not impair the conduct of the procedure. Using direct visualization of the needle in the transverse abdominis plane, bilateral transverse abdominis plane blocks were placed in the subcostal location using the standard solution. Following this, 4 additional trocars were placed across the upper and mid abdomen, and additional exploration was undertaken. As one elevated the liver, adhesions were taken down, and the previous fundoplication was identified. The fundoplication was then gradually taken down with division of the soft tissue with a combination of Harmonic scalpel, electrocautery, and donna. Once the fundoplication was entirely taken down, it was felt that the portion of the stomach was significantly deserosalized and would not serve well for a redo fundoplication. The proximal end of the stomach and the esophagogastric junction were distinctly deserosalized due to adhesions to the wrap as it was taken down, and given this, the what appeared to be proximal end of safe tissue for subsequent anastomosis would be the esophagus just above the esophagogastric junction. At this point, the plane of dissection was established, and the esophagus was divided just above the esophagogastric junction with 2 firings of the Endo-PIO black loads. Following this, the area of previous fundoplication, as well as the gastric cardia and distalmost esophagus, were then sequentially resected with the blood supply being divided with Harmonic scalpel and the gastric division with a combination of black and purple loads. The specimen was then subsequently delivered with one large piece and one smaller piece of stomach and distalmost esophagus as part of the specimen. The patient was noted to have a recurrent diaphragmatic hernia, and a posterior crural repair was then accomplished at this point with a series of 0 Ethibond sutures reinforced with PTFE pledgets. At this point, the small bowel was identified at the ligament of Treitz and traced down 50 cm distal to that point. We chose that amount of distance in the event that the patient may at any point need a reoperation, and this would give us some leeway in terms of the biliopancreatic limb. The small bowel was divided at that point and then traced down an additional 100 cm, where the [id number] enteroenterostomy was accomplished with internal firing of the Endo-PIO 60 mm stapler. The common opening was then closed transversely with the same stapler and angles anastomosed, and mesenteric defect approximated with some 0 Ethibond stitch, along with fibrin sealant. The Adelita limb was then elevated in the antecolic gastric manner, and it came up to the divided esophagus without significant tension. The anvil of a 25 mm EEA stapler was attached to a Bradgate sump type tube and the latter was brought down through the mouth and taken out through a small opening at the end of the esophagus, which allowed the anvil likewise to be pulled down to that level. The divided end of the Adelita limb was then opened and the main body of the EEA stapler was passed several centimeters into the lumen of the small bowel, brought up the anvil and united with it, thus creating the esophagojejunostomy. Upon removal of the stapler, double donuts of mucosa were noted within it. The proximal end of the staple line was clearly esophageal mucosa, having more of a fish belly white type appearance, as opposed to gastric mucosa. At this point, the esophagojejunostomy was reinforced with 3-0 Vicryl seromuscular stitch, along with fibrin sealant. The divided end of the small bowel was closed off with a vascular staple line. Leak test was accomplished with injection of air into the distalmost esophagus while the Adelita limb was compressed and the area submerged with antibiotic-containing saline solution. No leaks were identified. One Boris-Chan drain was then placed through the left lateral trocar site and positioned adjacent to the esophagojejunostomy, from there up into the splenic fossa. At that point, no further problems were noted. Trocars were removed. The peritoneal cavity deflated. Incisions were closed with some 4-0 Vicryl skin stitch. The patient was taken to the recovery room in satisfactory condition. Physician sales assistant entertainment and media Cristal Hart played an essential role in assisting in this case, helping to position the patient, retract structures as needed, as well as suturing and cutting sutures as indicated. Her presence improved patient safety and decreased operative time. Bebeto Frias MD /[id number]
== END 2017-11-12 13:30 | disposition home or self-care (01) | DRG 328 ==
LOC: JP.SDS 05:32 → JP.MS 05:32 → EDSTATUS 07:30 → JP.2SS 11:20
PROVIDERS: ADMIT Surgery; ATTEND Surgery
PROC: 0D150ZA Bypass Esophagus to Jejunum, Open Approach (ICD-10-PCS; principal; 2017-11-10)
PROC: 0BQT0ZZ Repair Diaphragm, Open Approach (ICD-10-PCS; 2017-11-10)
DX: K94.23 Gastrostomy malfunction (principal); K21.9 Gastro-esophageal reflux disease without esophagitis; K44.9 Diaphragmatic hernia without obstruction or gangrene; E66.9 Obesity, unspecified; F90.9 Attention-deficit hyperactivity disorder, unspecified type; Z68.34 Body mass index [BMI] 34.0-34.9, adult; Z79.899 Other long term (current) drug therapy; Z88.0 Allergy status to penicillin; Z88.8 Allergy status to other drugs, medicaments and biological substances
CPT/HCPCS: 74240; 74240-26; 82962; 88307; A9270-GY; C9113; J0171; J0330; J0694; J1100; J1644; J2001; J2405; J2704; J2710; J2795; J3010; J3410; J3411; J3420; J7030; J7042; J7050; J7120

== ENCOUNTER 2017-12-04 06:03 | Day surgery (SDC) | payer MEDICAID ==
[2017-12-04] MEDS ORDERED: Lactated Ringers 1,000 ML IV SCH (07:00)
[2017-12-04] MEDS ORDERED: Cyanocobalamin (Vitamin B12) 1,000 MCG/ML SDV IM ONE (07:00)
[2017-12-04] MEDS ORDERED: Propofol 200 MG/20 ML SDV ONE (07:11)
[2017-12-04] MEDS ORDERED: fentaNYL 100 MCG/2 ML SDV ONE (07:11)
[2017-12-04] MEDS ORDERED: Midazolam 1 MG/ML 2 ML SDV ONE (07:11)
[2017-12-04] MEDS ORDERED: Glycopyrrolate 0.2 MG/ML 2 ML SYRINGE IVPUSH ONE (07:15)
[2017-12-04] MEDS ORDERED: MVI, Adult with Vitamin K 10 ML, Thiamine 200 MG, Chromium/Copper/Mang/Selen/Zn 1 ML in... IV ONE ×4 (08:30)
[2017-12-04 10:03] VITALS: BP 125/68
--- NOTE | 2017-12-08 18:10 | OR ---
DATE OF PROCEDURE: 12/04/2017 PREOPERATIVE DIAGNOSIS: Probable stricture at esophagojejunostomy. POSTOPERATIVE DIAGNOSIS: Stricture and foreign body at esophagojejunostomy. OPERATIVE PROCEDURE: Upper GI endoscopy with: 1. Dilation of esophagojejunostomy (98497). 2. Partial removal of foreign body (previously placed pledgets) at esophagojejunostomy (10076). ANESTHESIA: IV sedation. INDICATION FOR PROCEDURE: The patient is status post esophagogastrectomy for recurrent gastroesophageal reflux disease, presents now with some symptoms of stricturing at her gastrojejunostomy. Plan is to proceed with an upper GI endoscopy with dilation as indicated. Potential risks including bleeding and perforation were discussed, and the patient wishes to proceed. DETAILS OF PROCEDURE: The patient was taken to the operating room and placed in a left lateral decubitus position. IV sedation was administered, after which the upper GI endoscope was passed orally through the length of the esophagus and into the area of the esophagojejunostomy. The scope could not quite be passed through the anastomosis with estimated diameter of only 8 mm. This was associated with some degree of inflammation. A visible pledget was noted. This was likely migrating through the area of the esophageal transection near the patient's previous Carol Ann fundoplication which included pledgets. Initially using fluoroscopic control, a Bard gastrointestinal balloon catheter was centered across the anastomosis and inflated to 36-Swedish size. This allowed adequate mobilization of the scope through the anastomosis and at that point, no complications related to the stricture dilation were indicated. A portion of the pledget was then removed with combination of biopsy forceps and sharp scissors. The entire pledget could not be removed at this point and it was felt given her relatively early postoperative state, further manipulation might be risky in terms of resulting perforation and the procedure then concluded itself. The patient was taken to the recovery room in satisfactory condition. Bebeto Frias MD /[id number]
== END 2017-12-04 09:50 | disposition home or self-care (01) ==
LOC: JP.SDS 06:03
PROVIDERS: ATTEND Surgery
DX: K91.89 Other postprocedural complications and disorders of digestive system (principal); T18.198A Other foreign object in esophagus causing other injury, initial encounter; K21.9 Gastro-esophageal reflux disease without esophagitis; E66.9 Obesity, unspecified; Z88.0 Allergy status to penicillin; Z88.1 Allergy status to other antibiotic agents; X58.XXXA Exposure to other specified factors, initial encounter
CPT/HCPCS: J2250; J2704; J3010; J3411; J3420; J7120

== ENCOUNTER 2017-12-10 06:21 | Day surgery (SDC) | payer MEDICAID ==
[2017-12-10] MEDS ORDERED: fentaNYL 100 MCG/2 ML SDV ONE (07:09)
[2017-12-10] MEDS ORDERED: Propofol 200 MG/20 ML SDV ONE (07:09)
[2017-12-10] MEDS ORDERED: Midazolam 1 MG/ML 2 ML SDV ONE (07:09)
[2017-12-10] MEDS ORDERED: Lactated Ringers 1,000 ML IV SCH (07:15)
[2017-12-10] MEDS ORDERED: Glycopyrrolate 0.2 MG/ML 2 ML SYRINGE IVPUSH ONE (07:30)
[2017-12-10] MEDS ORDERED: MVI, Adult with Vitamin K 10 ML, Thiamine 200 MG, Chromium/Copper/Mang/Selen/Zn 1 ML in... IV ONE ×4 (08:15)
[2017-12-10 09:54] VITALS: BP 115/71
--- NOTE | 2017-12-11 08:07 | OR ---
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 POSTOPERATIVE DIAGNOSES: 1. Stricture at esophagojejunostomy. 2. Foreign body (pledget) at esophagojejunostomy. OPERATIVE PROCEDURE: Upper GI endoscopy with: 1. Dilation of esophagojejunostomy (97360). 2. Partial removal of foreign body (62090). ANESTHESIA: IV sedation. INDICATION FOR PROCEDURE: The patient presents once again with symptoms of stricture at esophagojejunostomy. The plan is to proceed with upper GI endoscopy with dilation as indicated. She also has a previously partially removed pledget. Assuming that is there, that will also attempt to be removed. Potential risk including bleeding and perforation were discussed, and the patient wishes to proceed. DETAILS OF PROCEDURE: The patient was taken to the operating room and placed in a left lateral decubitus position. IV sedation was administered, after which the upper GI endoscope was passed orally through the length of the esophagus and into the level of the esophagojejunostomy. The patient was noted to have mild to moderate stricture. The scope, after initial manipulation of the pledget, which was still there, was able to be passed through the anastomosis. The pledget was partially removed, but it was fragmenting, and it was felt that a more aggressive approach might result in perforation, so the remainder of that was left in place. Otherwise, Bard gastrointestinal balloon catheter was then centered across the anastomosis and inflated to 36-Luxembourgish size. This was held in position for 1 minute, after which the balloon catheter was deflated and withdrawn. The scope could easily then be passed through the anastomosis with some visible dilation having occurred. The scope was withdrawn and the procedure concluded. The patient was taken to the recovery room in satisfactory condition. Bebeto Frias MD /[id number]
== END 2017-12-10 10:55 | disposition home or self-care (01) ==
LOC: JP.SDS 06:21
PROVIDERS: ATTEND Surgery
DX: K91.89 Other postprocedural complications and disorders of digestive system (principal); K21.9 Gastro-esophageal reflux disease without esophagitis; E66.9 Obesity, unspecified; Z88.0 Allergy status to penicillin; Z88.8 Allergy status to other drugs, medicaments and biological substances
CPT/HCPCS: 43247; 43249; J2250; J2704; J3010; J3411; J7120

== ENCOUNTER → 2019-01-01 | Day surgery (SDC) | payer MEDICAID ==
[~2019-01-01] MED LIST: Bupivacaine 0.5% 50 ML MDV ONE; Dextrose 5%-Lactated Ringers 1,000 ML IV SCH; HYDROmorphone 2 MG Tab PO ONE; HYDROmorphone 2 MG Tab PO PRN; Lidocaine 1% with EPINEPHrine 1:100,000 50 ML MDV ONE; Midazolam 1 MG/ML 2 ML SDV ONE; Propofol 200 MG/20 ML SDV ONE; ceFAZolin 2 GM in Premix Bag 1 BAG IV ONE; fentaNYL 100 MCG/2 ML SDV ONE
[2019-01-01 08:56] VITALS: BP 103/49
--- NOTE | 2019-01-07 21:34 | OR ---
DATE OF PROCEDURE: 01/01/2019 PREOPERATIVE DIAGNOSIS: Painful left breast mass. POSTOPERATIVE DIAGNOSIS: Painful left breast mass. PROCEDURE: Excisional biopsy of left breast ([id number]). ANESTHESIA: Local plus IV sedation. CARPORT ERECTOR: KADEN Joseph. INDICATION FOR PROCEDURE: This is a 48-year-old presenting with a prominence of left breast tissue in the lateral aspect of the left breast. This was more of a nebulous mass, but it was quite painful. There was no axillary lymphadenopathy. There was no fixation of the mass to the underlying fascia or the skin. The plan is to proceed with an excisional biopsy for diagnostic and therapeutic purposes. Potential risks of the procedure including bleeding and cosmetic deformity were reviewed and the patient wishes to proceed. DETAILS OF PROCEDURE: The patient was taken to the operating room, placed in a supine position. The area of concern had been marked out on the breast preoperatively. IV sedation was administered, after which the left breast and surrounding areas were prepped and draped and that area anesthetized with 1% lidocaine mixed with Marcaine. A previously used incision which was somewhat superior and lateral to the nipple-areolar complex was then reused and carried down through the skin and subcutaneous tissue and much of the underlying subcutaneous tissue was left in place. This compressed tissue consisting of an area of palpable abnormality and area of pain was then excised using electrocautery and the specimen delivered from the field. Generally, it felt like an area of fibrocystic type tissue without focal areas. The area of the dissection was inspected. Some minor bleeding was controlled with electrocautery. Excision was then closed with 3-0 and 4-0 Vicryl stitch deep and a 4-0 Vicryl subcuticular stitch. Dressing was applied. The patient was taken to the recovery room in satisfactory condition. There were no evident complications. Bebeto Frias MD /[id number]
== END ==
LOC: JP.SDS 05:29
PROVIDERS: ATTEND Surgery
DX: N60.12 Diffuse cystic mastopathy of left breast (principal); N60.82 Other benign mammary dysplasias of left breast; N60.92 Unspecified benign mammary dysplasia of left breast; N62 Hypertrophy of breast; K21.9 Gastro-esophageal reflux disease without esophagitis
CPT/HCPCS: 19301; 88305; A9270; J0690; J2250; J2704; J3010; J3490; J7042

== ENCOUNTER 2019-07-16 15:03 | Emergency (ER) | payer MEDICAID | END 2019-07-16 16:30 | disposition left against medical advice (07) | LOC: JP.ED 15:03 | DX: Z53.21 Procedure and treatment not carried out due to patient leaving prior to being seen by health care provider (principal) ==

== ENCOUNTER → 2019-11-09 | Day surgery (SDC) | payer MEDICAID ==
[~2019-11-09] MED LIST changes: -Bupivacaine 0.5% 50 ML MDV ONE; +Cyanocobalamin (Vitamin B12) 1,000 MCG/ML SDV IM ONE; -Dextrose 5%-Lactated Ringers 1,000 ML IV SCH; +Glycopyrrolate 0.2 MG/ML 2 ML SDV IVPUSH ONE; -HYDROmorphone 2 MG Tab PO ONE; -HYDROmorphone 2 MG Tab PO PRN; +Lactated Ringers 1,000 ML IV SCH; -Lidocaine 1% with EPINEPHrine 1:100,000 50 ML MDV ONE; +MVI, Adult with Vitamin K 10 ML, Thiamine 200 MG, Chromium/Copper/Mang/Selen/Zn 1 ML in... IV ONE; -ceFAZolin 2 GM in Premix Bag 1 BAG IV ONE
[2019-11-09 12:43] VITALS: BP 140/83; PULSE 94
--- NOTE | 2019-11-10 17:05 | OR ---
DATE OF PROCEDURE: 11/09/2019 SURGEON: Bebeto Frias MD PREOPERATIVE DIAGNOSIS: Fullness and epigastric discomfort extending into the left upper quadrant. POSTOPERATIVE DIAGNOSES: 1. Fullness and epigastric discomfort extending into the left upper quadrant. 2. Normal examination status post partial gastrectomy with Adelita-en-Y gastrojejunostomy. PROCEDURE: Upper gastrointestinal endoscopy. ANESTHESIA: IV sedation. INDICATION FOR PROCEDURE: This is a 49-year-old presenting with some ongoing postprandial fullness along with some epigastric discomfort and left upper quadrant discomfort. Plan is to proceed with an upper GI endoscopy with biopsies as indicated. Potential risks including bleeding and perforation were discussed, and the patient wishes to proceed. DETAILS OF PROCEDURE: The patient was taken to the operating room and placed in a left lateral decubitus position. IV sedation was administered, after which, the upper GI endoscope was passed orally through the length of the esophagus and into the proximal small stomach, and through the gastrojejunostomy roughly 20 cm of Adelita limb. Overall findings appeared to be entirely normal. There were no areas of stricturing or significant inflammation. No retained food or any signs of more distal bowel obstruction. Scope was then withdrawn. The procedure then concluded. The patient was taken to the recovery room in satisfactory condition. Bebeto Frias MD /[id number]
== END ==
LOC: JP.SDS 09:13
PROVIDERS: ATTEND Surgery
DX: R10.13 Epigastric pain (principal); R10.12 Left upper quadrant pain; K21.9 Gastro-esophageal reflux disease without esophagitis; K90.9 Intestinal malabsorption, unspecified; E11.9 Type 2 diabetes mellitus without complications; Z98.84 Bariatric surgery status
CPT/HCPCS: 43235; J2250; J2704; J3010; J3411; J3420; J3490; J7120

== ENCOUNTER 2020-12-24 08:59 | Emergency (ER) | payer MEDICAID ==
[2020-12-24 09:18] VITALS: BP 152/86; PULSE 91
--- NOTE | 2020-12-24 09:20 | EDM.PDOC ---
ED HPI GENERAL MEDICAL PROBLEM - General Chief Complaint: Upper Extremity Injury/Pain Stated Complaint: L SHOULDER DISLOCATION Time Seen by Provider: 12/24/20 09:17 Source of Information: Reports: Patient, Family, RN Notes Reviewed History Limitations: Reports: No Limitations - History of Present Illness INITIAL COMMENTS - FREE TEXT/NARRATIVE: 50-year-old female presents emergency department today with left shoulder pain, she slipped and fell on ice last night and now has difficulty moving her shoulder she feels better when she grabs her shirt with her left hand cannot raise her arm past 20 degrees abduction, no loss of consciousness did not hit her head Left Shoulder Pain Score (Numeric/FACES): 8 - Related Data Allergies Allergy/AdvReac Type Severity Reaction Status Date / Time Penicillins Allergy Severe Difficulty Verified 12/24/20 09:07 Breathing amoxicillin [Amoxicillin] Allergy Intermediate Difficulty Verified 12/24/20 09:07 Breathing clarithromycin [From Biaxin] Allergy Intermediate Rash Verified 12/24/20 09:07 hydromorphone [From Dilaudid] Allergy Other Verified 12/24/20 09:07 Home Meds: Home Meds Venlafaxine [Effexor] 150 mg PO DAILY 01/08/14 [History] Dextroamphetamine/Amphetamine [Adderall Xr 20 mg Capsule] 20 mg PO BID 12/26/16 [History] Calcium Citrate/Vitamin D3 [Calcium Citrate + D] 1 tab PO DAILY 06/10/18 [History] Cyanocobalamin (Vitamin B-12) [Vitamin B-12] 1,000 mcg SL DAILY 06/10/18 [History] Multivitamin [Multi-Day Vitamins] 1 tab PO DAILY 06/10/18 [History] Phenazopyridine [Pyridium] 200 mg PO TID PRN 12/30/18 [History] Acarbose [Precose] 25 mg PO TIDMEALS 11/08/19 [History] Fluticasone Propionate [Flonase] 2 spray NS DAILY 11/08/19 [History] Cholecalciferol (Vitamin D3) [Vitamin D] 5,000 unit PO DAILY 11/09/19 [History] Past Medical History HEENT History: Reports: Allergic Rhinitis Cardiovascular History: Reports: Arrhythmia Respiratory History: Reports: Intubation, Previous Gastrointestinal History: Reports: Cholelithiasis, Chronic Constipation, GERD Genitourinary History: Reports: Renal Calculus 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: , 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 , Other (See Below) Other RESILIENT TILE INSTALLER History: boggy uterus Psychiatric History: Reports: Anxiety, Depression Hematologic History: Reports: B12 Deficiency Oncologic (Cancer) History: Reports: Cervix Dermatologic History: Reports: None - Infectious Disease History Infectious Disease History: Reports: Chicken Pox - Past Surgical History Head Surgeries/Procedures: Reports: None HEENT Surgical History: Reports: Tonsillectomy Respiratory Surgical History: Reports: None GI Surgical History: Reports: Cholecystectomy, Colonoscopy, EGD, Hernia, Abdominal, Carol Ann Fundoplication, Other (See Below) Other GI Surgeries/Procedures: partial gastrectomy Female Surgical History: Reports: Breast Biopsy, Hysterectomy, Salpingo- Oophorectomy Other Female Surgeries/Procedures: KANDICE with left salpingo-oophorectomy Neurological Surgical History: Reports: Discectomy Musculoskeletal Surgical History: Reports: Other (See Below) Other Musculoskeletal Surgeries/Procedures:: wrist surgery Oncologic Surgical History: Reports: Biopsy of Breast Other Oncologic Surgeries/Procedures: hysterectomy Dermatological Surgical History: Reports: Skin Biopsy Social & Family History - Family History Family Medical History: No Pertinent Family History HEENT: Reports: Macular Degeneration Respiratory: Reports: Sleep Apnea Musculoskeletal: Reports: Gout Neurological: Reports: Dementia Oncologic: Reports: Brain, Lung, Skin - Tobacco Use Tobacco Use Status *Q: Never Tobacco User - Caffeine Use Caffeine Use: Reports: Coffee - Recreational Drug Use Recreational Drug Use: No Review of Systems - Review of Systems Review Of Systems: See Below Musculoskeletal: Reports: Shoulder Pain Neurological: Reports: No Symptoms ED EXAM, GENERAL - Physical Exam Exam: See Below Free Text/Narrative:: Examination is limited I do not appreciate an obvious dislocation of the left shoulder she is tender to palpation or around the humeral head she is grasping her shirt for support radial pulses +2 Exam Limited By: No Limitations General Appearance: Alert, WD/WN, No Apparent Distress Respiratory/Chest: No Respiratory Distress Course - Vital Signs Last Recorded V/S: Last Vital Signs Temp 98.1 F 12/24/20 09:14 Pulse 91 12/24/20 09:14 Resp 16 12/24/20 09:14 BP 152/86 H 12/24/20 09:14 Pulse Ox 97 12/24/20 09:14 - Orders/Labs/Meds Meds: Medications Discontinued Medications Generic Name Dose Route Start Last Admin Trade Name Freq PRN Reason Stop Dose Admin Cyclobenzaprine HCl 10 mg 12/24/20 10:19 12/24/20 10:24 Flexeril PO 12/24/20 10:20 10 mg ONETIME ONE Administration Ketorolac Tromethamine 60 mg 12/24/20 10:15 12/24/20 10:24 Toradol IM 12/24/20 10:16 60 mg ONETIME ONE Administration Departure - Departure Time of Disposition: 10:51 Disposition: Home, Self-Care 01 Condition: Fair Clinical Impression: Sprain of shoulder, left Qualifiers: Encounter type: initial encounter Shoulder sprain type: unspecified sprain Qualified Code(s): S43.402A - Unspecified sprain of left shoulder joint, initial encounter - Discharge Information Instructions: Shoulder Sprain Referrals: Alonzo Puentes MD [Primary Care Provider] - Forms: ED Department Discharge Additional Instructions: To need to use ibuprofen or Tylenol as needed for pain control, use Flexeril as needed for muscle relaxant, try the sling for comfort please follow-up with your orthopedic for further evaluation next week Sepsis Event Note (ED) - Evaluation Sepsis Screening Result: No Definite Risk - Focused Exam Vital Signs: Vital Signs Temp Pulse Resp BP Pulse Ox 12/24/20 09:14 98.1 F 91 16 152/86 H 97 - Assessment/Plan Plan: Assessment Acuity = acute Site and laterality = left shoulders sprain Etiology = secondary trauma Manifestations = none Location of injury = Home Lab values = x-ray reveals no fracture no dislocation Plan She had some improvement with Toradol and Flexeril, she is going to try Flexeril 10 mg one tab p.o. 3 times daily as needed at home and then follow-up with her orthopedic surgeon next week sling was provided This note was dictated using [employer] voice recognition software please call with any questions on syntax or grammar.
--- NOTE | 2020-12-24 10:13 | CRLCR ---
INDICATION: Fall. Pain. Technique : Two views left shoulder FINDINGS: Mild degenerate arthritis left shoulder. No acute fracture or dislocation involving left shoulder. Surgical clips upper abdomen. Mild thoracolumbar curve. Left shoulder otherwise negative. Dictated by Davide Hugo MD @ Dec 24 2020 10:10AM Signed by Dr. Davide Hugo @ Dec 24 2020 10:10AM
[2020-12-24] MEDS ORDERED: Ketorolac 60 MG/2 ML SDV IM ONE (10:15)
[2020-12-24] MEDS ORDERED: Cyclobenzaprine 10 MG Tab PO ONE (10:19)
== END 2020-12-24 11:02 | disposition home or self-care (01) ==
LOC: JP.ED 08:59
DX: S43.402A Unspecified sprain of left shoulder joint, initial encounter (principal); Z88.0 Allergy status to penicillin; Z88.1 Allergy status to other antibiotic agents; Z88.5 Allergy status to narcotic agent; Z79.899 Other long term (current) drug therapy; W00.0XXA Fall on same level due to ice and snow, initial encounter
CPT/HCPCS: 73020; 96372; 99283; A9270; J1885

== ENCOUNTER 2021-02-20 07:41 | Inpatient (IN) | payer MEDICAID ==
[~2021-02-20 07:41] MED LIST changes: +Bupivacaine 0.5% 50 ML MDV ONE; -Cyanocobalamin (Vitamin B12) 1,000 MCG/ML SDV IM ONE; +Dexamethasone 4 MG/ML SDV ONE; -Glycopyrrolate 0.2 MG/ML 2 ML SDV IVPUSH ONE; +Glycopyrrolate 0.2 MG/ML 5 ML MDV ONE; -Lactated Ringers 1,000 ML IV SCH; +Lidocaine 1% with EPINEPHrine 1:100,000 50 ML MDV ONE; -MVI, Adult with Vitamin K 10 ML, Thiamine 200 MG, Chromium/Copper/Mang/Selen/Zn 1 ML in... IV ONE; +Meropenem 500 MG SDV ONE; -Midazolam 1 MG/ML 2 ML SDV ONE; +Neostigmine Methylsulfate 1 MG/ML 5 ML Syringe ONE; +Ondansetron 4 MG/2 ML SDV ONE; +Rocuronium 50 MG/5 ML Vial ONE; +Succinylcholine 200 MG/10 ML MDV ONE; -fentaNYL 100 MCG/2 ML SDV ONE; +fentaNYL 250 MCG/5 ML SDV ONE
[2021-02-20] MEDS ORDERED: Acetaminophen 500 MG Tab PO ONE (07:45)
[2021-02-20] MEDS ORDERED: Scopolamine 1.5 MG Transdermal Patch TOP ONE (07:45)
[2021-02-20] MEDS ORDERED: Celecoxib 200 MG Cap PO ONE (07:45)
[2021-02-20] MEDS ORDERED: Dextrose 5%-Lactated Ringers 1,000 ML IV SCH (08:00)
[2021-02-20] MEDS ORDERED: Albuterol/Ipratropium 3.0-0.5 MG/3 ML Neb Soln NEB ONE (08:30)
[2021-02-20 08:39] LABS: CORONAVIRUS COVID-19 NAA NEGATIVE (NEGATIVE)
[2021-02-20] MEDS ORDERED: Ketamine 500 MG/5 ML MDV IV SCH (09:00)
[2021-02-20] MEDS ORDERED: Magnesium Sulfate 1.7 GM in Sodium Chloride 0.9% 100 ML IV SCH (09:00)
[2021-02-20] MEDS ORDERED: Ketamine 50 MG in Sodium Chloride 0.9% 49.5 ML IV SCH (09:00)
[2021-02-20] MEDS ORDERED: MAGNESIUM SULFATE IV ONE (09:30)
[2021-02-20] MEDS ORDERED: SODIUM CHLORIDE 0.9% IV ONE (09:30)
[2021-02-20] MEDS: cefOXitin 2 GM in Sodium Chloride 0.9% 50 ML IV ONE ×2 (09:34→13:30)
[2021-02-20] MEDS ORDERED: Lactated Ringers 1,000 ML ONE (10:25)
[2021-02-20] MEDS ORDERED: fentaNYL 250 MCG/5 ML SDV ONE (10:34)
[2021-02-20] MEDS ORDERED: diphenhydrAMINE 50 MG/ML SDV IVPUSH PRN (10:42)
[2021-02-20] MEDS ORDERED: diphenhydrAMINE 25 MG Cap PO PRN (10:42)
[2021-02-20] MEDS ORDERED: Naloxone 0.4 MG/ML SDV IVPUSH PRN (10:42)
[2021-02-20] MEDS ORDERED: Ondansetron 4 MG/2 ML SDV IVPUSH PRN ×2 (10:42→13:00)
[2021-02-20] MEDS ORDERED: Morphine PF 150 MG/30 ML PCA Syringe IV PRN (10:45)
[2021-02-20] MEDS ORDERED: Naloxone 0.4 MG/ML SDV IV PRN (11:00)
[2021-02-20] MEDS ORDERED: Ondansetron 4 MG/2 ML SDV IVPUSH ONE (11:45)
[2021-02-20] MEDS ORDERED: Cyclobenzaprine 10 MG Tab PO PRN (12:54)
[2021-02-20] MEDS ORDERED: Albuterol/Ipratropium 3.0-0.5 MG/3 ML Neb Soln INH PRN (12:56)
[2021-02-20] MEDS ORDERED: hydrOXYzine HCL 100 MG/2 ML SDV IM PRN (13:00)
[2021-02-20] MEDS ORDERED: Calcium Gluconate 10% 1 GM/10 ML SDV IVPUSH PRN (13:00)
[2021-02-20] MEDS ORDERED: Labetalol 20 MG/4 ML Syringe IVPUSH PRN (13:00)
[2021-02-20] MEDS ORDERED: Acetaminophen 500 MG Tab PO PRN (13:00)
[2021-02-20] MEDS: Dextrose 5%-Lactated Ringers 1,000 ML IV SCH ×2 (13:53→23:30)
[2021-02-20] MEDS: Metoclopramide 10 MG/2 ML SDV IVPUSH PRN (13:54)
[2021-02-20] MEDS: cefOXitin 2 GM in Sodium Chloride 0.9% 50 ML IV SCH ×2 (15:52→21:00)
[2021-02-20] MEDS: MVI, Adult with Vitamin K 10 ML, Thiamine 200 MG, Zinc/Copper/Manganese/Selenium 1 ML i... IV SCH ×4 (15:53)
[2021-02-20] MEDS: Acetaminophen 500 MG Tab PO SCH ×2 (15:55→23:29)
[2021-02-20] MEDS: Pantoprazole 40 MG Vial IVPUSH SCH (15:56)
[2021-02-20] MEDS: diphenhydrAMINE 50 MG/ML SDV IVPUSH PRN (16:59)
[2021-02-20] MEDS: Heparin Sodium 5,000 Units/ML Vial SUBCUT SCH (20:05)
[2021-02-21] MEDS: cefOXitin 2 GM in Sodium Chloride 0.9% 50 ML IV SCH ×3 (03:03→15:25)
[2021-02-21] MEDS: diphenhydrAMINE 50 MG/ML SDV IVPUSH PRN ×2 (03:03→16:41)
[2021-02-21] MEDS ORDERED: Iopamidol 612 MG/ML 50 ML SDV PO STA (03:26)
[2021-02-21] MEDS ORDERED: Ondansetron 4 MG Tab.DIS PO PRN (07:41)
[2021-02-21] MEDS: Heparin Sodium 5,000 Units/ML Vial SUBCUT SCH ×2 (08:08→21:48)
[2021-02-21] MEDS: Acetaminophen 500 MG Tab PO SCH ×3 (08:12→23:49)
[2021-02-21] MEDS: Celecoxib 200 MG Cap PO SCH ×2 (08:12→21:48)
--- NOTE | 2021-02-21 08:57 | CR ---
UGI Limited HISTORY: Postbariatric surgery FINDINGS: Patient swallowed water-soluble contrast. Upright views of the abdomen show no evidence of extravasation or obstruction. There is a surgical drain in the upper abdomen. IMPRESSION: Status post bariatric surgery with revision No extravasation or obstruction seen
[2021-02-21] MEDS ORDERED: Venlafaxine 75 MG Cap.ER PO SCH (09:00)
[2021-02-21] MEDS: SCOPOLAMINE PATCH CHECK TOP SCH (10:20)
[2021-02-21] MEDS: Venlafaxine 75 MG Tab PO SCH (10:59)
--- NOTE | 2021-02-21 13:13 | PN ---
DATE OF SERVICE: 02/21/2021 SUBJECTIVE: Agueda is postoperative day #1. Pain has been controlled. She is on a step 1 diet and has 490 mL in. Urine output via Sauer catheter is 2220. KENYETTA drain put out 240 mL of a red drainage. REVIEW OF SYSTEMS: Remainder of review of systems negative for any pertinent positives or negatives. She did decline her upper GI barium swallow today. OBJECTIVE: GENERAL: Agueda Young is a 50-year-old female. VITAL SIGNS: TPR is 97.5, 99, 16, blood pressure 140/79. HEENT: Negative. NECK: Supple. HEART: Regular rate and rhythm. LUNGS: Clear. ABDOMEN: Dressing dry and intact. KENYETTA drain intact. EXTREMITIES: Without peripheral edema. ASSESSMENT: Exploratory laparotomy with: 1. Small-bowel resection. 2. Formation of duodenojejunostomy. 3. Excision of peritoneal nodules. 4. Reduction of small bowel volvulus. 5. Excision of subfascial abdominal lipoma. 6. Placement of Interceed mesh x2. POSTOPERATIVE DIAGNOSES: 1. Reactive hypoglycemia, refractory to medical management, status post Adelita-en-Y gastric bypass. 2. Elongated peritoneal nodules abdominal wall into underlying small bowel 7.5 cm. 3. Incarcerated trocar site hernia. 4. Focal small bowel volvulus under the jejunojejunostomy. 5. Subfascial 1.3 cm abdominal wall lipoma. 6. Date of procedure: 02/20/2021. Surgeon: Bebeto Frias MD. PLAN: 1. Decrease IV to 100 mL per hour. 2. Continue step 1 gastric bypass diet. 3. Discontinue Sauer catheter. 4. To call when upper GI is completed. 5. We will evaluate p.r.n. or in a.m. Cristal Hart PA-C /[id number]
[2021-02-21] MEDS: Dextrose 5%-Lactated Ringers 1,000 ML IV SCH (13:53)
[2021-02-21] MEDS: Metoclopramide 10 MG/2 ML SDV IVPUSH PRN (13:58)
[2021-02-21] MEDS ORDERED: Venlafaxine 75 MG Tab PO SCH (15:00)
[2021-02-21] MEDS: Pantoprazole 40 MG Vial IVPUSH SCH (15:19)
[2021-02-21] MEDS: MVI, Adult with Vitamin K 10 ML, Thiamine 200 MG, Zinc/Copper/Manganese/Selenium 1 ML i... IV SCH ×4 (16:34)
[2021-02-22] MEDS: Dextrose 5%-Lactated Ringers 1,000 ML IV SCH (02:13)
[2021-02-22] MEDS ORDERED: oxyCODONE 5 MG Tab PO PRN (06:50)
[2021-02-22] MEDS: Heparin Sodium 5,000 Units/ML Vial SUBCUT SCH (08:54)
[2021-02-22] MEDS: Celecoxib 200 MG Cap PO SCH (08:54)
[2021-02-22] MEDS: Acetaminophen 500 MG Tab PO SCH (08:54)
[2021-02-22] MEDS: Venlafaxine 75 MG Tab PO SCH (08:55)
[2021-02-22] MEDS: SCOPOLAMINE PATCH CHECK TOP SCH (08:56)
[2021-02-22] MEDS ORDERED: Bisacodyl 5 MG Tab PO SCH (09:00)
[2021-02-22] MEDS ORDERED: Cyanocobalamin (Vitamin B12) 1,000 MCG/ML SDV IM ONE (09:00)
[2021-02-22] MEDS ORDERED: Docusate Sodium 100 MG Cap PO SCH (09:00)
--- NOTE | 2021-02-22 09:02 | PN ---
DATE OF SERVICE: 02/22/2021 SUBJECTIVE: Alejandra is postoperative day #2. Vital signs have been stable. Oral intake 1360 and urine output 650 recorded. KENYETTA drain put out 140 mL of red drainage. REVIEW OF SYSTEMS: Remainder of review of systems negative for any pertinent positives and negatives. OBJECTIVE: GENERAL: Agueda Young is a pleasant 50-year-old female. She is alert, orientated. Looks like, she is feeling better today. VITAL SIGNS: TPR is 95.7, 73, 18, blood pressure 160/76. HEENT: Negative. NECK: Supple. HEART: Regular rate and rhythm. LUNGS: Clear. ABDOMEN: Dressings dry and intact. Aquacel dressing is on. KENYETTA drain as above. EXTREMITIES: Without peripheral edema. ASSESSMENT: Exploratory laparotomy with: 1. Small-bowel resection. 2. Formation of the duodenojejunostomy. 3. Excision of peritoneal nodule. 4. Reduction of small bowel volvulus. 5. Excision of subfascial abdominal lipoma. 6. Placement of Interceed mesh x2. POSTOPERATIVE DIAGNOSES: 1. Reactive hypoglycemia refractory to medical management, status post Adelita-en-Y gastric bypass. 2. Elongated peritoneal nodule abdominal wall into underlying small bowel 7.5 cm. 3. Incarcerated trocar site hernia. 4. Focal small bowel volvulus under the jejunojejunostomy. 5. Subfascial 1.3 cm abdominal wall lipoma. 6. Date of procedure: 02/20/2021. Surgeon: Bebeto Frias MD. PLAN: 1. Dulcolax 10 mg tablets p.o. b.i.d. 2. Colace 100 mg p.o. b.i.d. 3. May shower. 4. Discontinue EDUCATION PROGRAM SPECIALIST. 5. Oxycodone 5 mg q.4 hours p.r.n. pain. 6. Continue use of incentive spirometer. Ambulation encouraged. 7. We will evaluate p.r.n. or in a.m. 8. Plan discharge in a.m. Cristal Hart PA-C /[id number]
[2021-02-22 10:51] VITALS: BP 139/76; PULSE 77
[2021-02-22] MEDS ORDERED: Pantoprazole 40 MG Tab.CR PO SCH (11:30)
--- NOTE | 2021-02-23 12:32 | DISCH ---
ADMISSION DIAGNOSES: Severe reactive hypoglycemia, refractory to medical management; status post Adelita-en-Y gastric bypass; partial gastrectomy with Adelita-en-Y gastric bypass. DISCHARGE DIAGNOSES: 1. Exploratory laparotomy with: a. Small-bowel resection. b. Formation of the duodenojejunostomy. c. Excision of peritoneal nodule. d. Reduction of small bowel volvulus. e. Excision of subfascial abdominal lipoma. f. Placement of Interceed mesh x2. POSTOPERATIVE DIAGNOSES: 1. Reactive hypoglycemia refractory to medical management, status post Adelita-en-Y gastric bypass surgery. 2. Elongated peritoneal nodule abdominal wall into underlying small bowel, 7.5 cm. 3. Incarcerated trocar site hernia. 4. Focal small bowel volvulus under jejunojejunostomy. 5. Subfascial 1.3 cm abdominal wall lipoma. 6. Date of procedure: 02/20/2021. Bebeto Frias MD. HISTORY: Agueda Young is a 50-year-old female with reactive hypoglycemia, status post Adelita-en-Y gastric bypass surgery. She was refractory to medical management. After preoperative evaluation and discussion of possible risks and possible complications, she wished to proceed with surgical procedure. HOSPITAL COURSE: She had her surgery on 02/21/2021. She was started on a step 2 gastric bypass diet. Upper GI was negative. Sauer was discontinued. On postoperative day #2, she was given bowel stimulation, had a bowel movement, had instructions on step 2 gastric bypass diet, and she was ambulating, urinary output good, intake good, vital signs stable, pain controlled, and she was able to be discharged to home. PHYSICAL EXAMINATION: GENERAL: Agueda Young is a 50-year-old female. VITAL SIGNS: Height is 5 feet 2 inches, weight is 129 pounds, BMI is 23. TPR 97.5, 77, 16, blood pressure 139/76. HEENT: Negative. NECK: Supple. HEART: Regular rate and rhythm. LUNGS: Clear. ABDOMEN: Aquacel dressing is on. EXTREMITIES: Without peripheral edema. NEUROLOGIC: Intact. PSYCHIATRIC: Mood and affect flat. DISPOSITION: Discharged to home. CONDITION: Stable and improving. FOLLOWUP: Appointment with Cristal Hart PA-C, on 03/01/2021 at 8:45 a.m. HOME MEDICATIONS: 1. Oxycodone 5 mg p.o. q.4 hours p.r.n. pain, #48. 2. She is to resume her home medications of: a. Adderall XR 20 mg p.o. b.i.d. b. Effexor 150 mg p.o. daily. c. Pyridium 200 mg p.o. t.i.d. p.r.n. d. Effexor 150 mg and 75 mg p.o. every 24 hours. e. Celebrex 200 mg p.o. b.i.d. f. Tylenol 1000 mg p.o. q.8 hours. DIET: Step 2 gastric bypass diet without cereal for 2 weeks until 03/07/2021. ACTIVITY: Lifting: No lifting greater than 10 pounds for 2 weeks. Other activity: Walk 6 times daily into your home or outside if with someone with you. DISCHARGE INSTRUCTIONS: Driving: Do not drive for 1 week or within 6 hours of taking oxycodone. Shower/bathing: May shower. Keep operative site clean and dry. Take off Aquacel dressing on 02/26/2021. Wear abdominal binder for 6 weeks. Notify provider if any fever, increased pain, swelling, redness, drainage, nausea, vomiting. SPECIAL INSTRUCTION: Use incentive spirometer 10 times every hour while awake for 1 week. Check blood sugars 4 times a day and bring record of her blood sugar readings to clinic appointment. /[id number]
--- NOTE | 2021-03-11 11:45 | OR ---
DATE OF PROCEDURE: 02/20/2021 SURGEON: Bebeto Frias MD PREOPERATIVE DIAGNOSIS: Reactive hypoglycemia refractory to medical management, status post Adelita-en-Y gastric bypass. POSTOPERATIVE DIAGNOSES: 1. Reactive hypoglycemia refractory to medical management, status post Adelita-en-Y gastric bypass. 2. Elongated peritoneal nodule in abdominal wall extending into small bowel. 3. Incarcerated trocar site hernia. 4. Focal small bowel volvulus underlying the jejunojejunostomy. 5. Subfascial abdominal wall lipoma. OPERATIVE PROCEDURES: Exploratory laparotomy with: 1. Takedown of Adelita limb at jejunojejunostomy and formation of duodenal jejunostomy (09573). 2. Separate small bowel resection (99211). 3. Excision of peritoneal nodule extending from abdominal wall onto underlying small bowel (57774). 4. Reduction of small bowel volvulus (02887). 5. Excision of subfascial abdominal wall lipoma (61132). 6. Placement of Interceed mesh x2 (23493). ANESTHESIA: General. FURNACE MECHANIC HELPER: Cristal Hart PA-C. INDICATIONS FOR PROCEDURE: This is a 50-year-old status post Adelita-en-Y gastric bypass type procedure, who presents with ongoing problems with reactive hypoglycemia that has been refractory to medical management. A well-documented surgical procedure to correct this is taking down the Adelita limb at the jejunojejunostomy and anastomosing that to then the proximal duodenum. This removes the component of the duodenal bypass in terms of its role in reducing blood sugars and generally is fairly successful. Potential risks of the procedure were reviewed with the patient including bleeding, infection, injury to underlying viscera, leaks from GI tract closures and such as well as possibility of persistent problems with hypoglycemia and/or subsequent problems with weight regain were all gone over along with the remote possibility of cardiopulmonary, septic, or hemorrhagic complications leading to and the patient wishes to proceed. DETAILS OF PROCEDURE: The patient was taken to the operating room, and after general endotracheal anesthesia was induced, a Sauer catheter was inserted and the abdomen prepped and draped. An upper midline incision from the xiphoid to just above the umbilicus was made and carried down through the full-thickness abdominal wall. During the course of the midline incision, an incarcerated trocar site hernia was identified. The incarcerated preperitoneal fat was then excised, flushed with the fascia, and the hernia was then subsequently repaired as part of the midline closure. During the course of the entrance in the abdomen, additionally a 1.3 cm subfascial lipoma was identified and this was located posterior to Roverto fascia, and this was excised and sent as a separate specimen as well. Upon entering the peritoneal cavity, the patient was noted to have an elongated peritoneal nodule extending from the anterior abdominal wall and this traced down across the mid of the Adelita limb and caused a focal area of stricturing there. After removal of the peritoneal nodule, that segment of small bowel was resected with it being divided proximally and distally with PIO donna as was the underlying mesentery and the GI tract continuity was then reestablished there once again with a [id number] enteroenterostomy with internal firing of the Endo-PIO 60 mm stapler. Common opening was closed transversely with the same stapler and angles anastomosed and reinforced with some 3-0 Vicryl stitch, and in this case, there were no mesenteric defect. At this point, the Adelita limb was divided flush with the point where it entered the jejunojejunostomy. The mesentery was freed up somewhat and this then easily came up to the level of the proximal duodenum. This was oriented adjacent to the proximal duodenum with a 3-0 Vicryl seromuscular stitch and internal firing of the Endo-PIO 60 mm stapler was initially accomplished between the 2 segments of the bowel. A second internal firing of 30 mm stapler was then accomplished as well and the common opening was then closed with a PIO purple load. The angles of anastomosis and mesenteric defect were approximated with some 3- 0 Vicryl stitch and 2-0 silk stitch respectively. At this point, the anastomosis was reinforced with some fibrin sealant and the abdomen irrigated with antibiotic-containing saline solution. A single Boris-Chan drain was then placed through stab wound in right midabdomen and placed across the duodenal jejunostomy, and at that point, no further problems noted. The abdomen was irrigated with antibiotic- containing saline solution. There was no omentum available for placement underneath the incisions, so 2 Interceed meshes were placed to limit recurrent adhesion formation within the area underlying the incision as well as down towards the pelvis those surfaces from the underlying viscera. The midline fascia was then approximated with #2 Vicryl stitch and the subcutaneous tissue with 2 layers of 3-0 and 4-0 Vicryl stitch and the skin with donna. Prior to closure, bilateral transversus abdominis plane block was placed and the incision was also anesthetized with 1% lidocaine mixed with Marcaine at the fascial level. The patient was taken to the recovery room in satisfactory condition. Physician human services assistant, Cristal Hart, played an essential role in assisting in this case helping to position the patient, retract structures as needed, as well as suturing and cutting sutures when indicated. Her presence improved patient safety and decreased operative time. Bebeto Frias MD /[id number]
== END 2021-02-22 15:34 | disposition home or self-care (01) | DRG 326 ==
LOC: JP.SDS 07:41 → EDSTATUS 10:15 → JP.SDSSCHI 11:40 → JP.MS 11:41
PROVIDERS: ADMIT Surgery; ATTEND Surgery
PROC: 0D160ZA Bypass Stomach to Jejunum, Open Approach (ICD-10-PCS; principal; 2021-02-20)
PROC: 0DB80ZZ Excision of Small Intestine, Open Approach (ICD-10-PCS; 2021-02-20)
PROC: 0DS80ZZ Reposition Small Intestine, Open Approach (ICD-10-PCS; 2021-02-20)
PROC: 0JB80ZZ Excision of Abdomen Subcutaneous Tissue and Fascia, Open Approach (ICD-10-PCS; 2021-02-20)
PROC: 0JB80ZZ Excision of Abdomen Subcutaneous Tissue and Fascia, Open Approach (ICD-10-PCS; 2021-02-20)
PROC: 3E0M05Z Introduction of Adhesion Barrier into Peritoneal Cavity, Open Approach (ICD-10-PCS; 2021-02-20)
DX: K95.89 Other complications of other bariatric procedure (principal); K56.2 Volvulus; E16.2 Hypoglycemia, unspecified; Z98.84 Bariatric surgery status; D17.1 Benign lipomatous neoplasm of skin and subcutaneous tissue of trunk; K21.9 Gastro-esophageal reflux disease without esophagitis; F98.8 Other specified behavioral and emotional disorders with onset usually occurring in childhood and adolescence; F90.9 Attention-deficit hyperactivity disorder, unspecified type; E66.01 Morbid (severe) obesity due to excess calories; Z98.890 Other specified postprocedural states; Z20.822 Contact with and (suspected) exposure to COVID-19; Z68.23 Body mass index [BMI] 23.0-23.9, adult
CPT/HCPCS: 0241U; 36415; 74240; 74240-26; 82306; 82607; 82728; 82746; 82947; 84590; 88302; 88304; 88305; 88307; 94640; 94762; A9270-GY; C9113; J0171; J0330; J0694; J1100; J1200; J1644; J2020; J2185; J2270; J2405; J2704; J2710; J2765; J2795; J3010; J3411; J3420; J3475; J3490; J7050; J7120; J7121; J7620-GY; Q9967

== ENCOUNTER 2021-12-27 12:30 | Emergency (ER) | payer BC, MEDICAID ==
[2021-12-27] MEDS ORDERED: Morphine 4 MG/ML Syringe IVPUSH PRN (12:37)
[2021-12-27] MEDS ORDERED: Aspirin 81 MG Tab.Chew PO ONE (12:37)
[2021-12-27] MEDS ORDERED: Sodium Chloride 0.9% 10 ML Syringe FLUSH PRN (12:37)
[2021-12-27] MEDS ORDERED: Nitroglycerin 0.4 MG Tab.SL SL PRN (12:37)
[2021-12-27] MEDS ORDERED: Ondansetron 4 MG/2 ML SDV IVPUSH ONE (12:39)
[2021-12-27] MEDS ORDERED: diphenhydrAMINE 50 MG/ML SDV IVPUSH ONE (12:57)
[2021-12-27] MEDS ORDERED: Famotidine 20 MG/2 ML SDV IVPUSH ONE (12:57)
[2021-12-27] MEDS ORDERED: methylPREDNISolone Sodium Succinate 125 MG/2 ML SDV IV ONE (12:57)
[2021-12-27] MEDS ORDERED: EPINEPHrine 1 MG/ML SDV IM ONE (12:57)
[2021-12-27] MEDS ORDERED: LORazepam 2 MG/ML SDV IVPUSH ONE ×2 (12:58→14:09)
[2021-12-27] MEDS ORDERED: Alum Hydrox/Mag Hydrox/Simeth 15 ML, Lidocaine 2% 15 ML PO ONE ×2 (13:37)
[2021-12-27] MEDS ORDERED: Ketorolac 30 MG/ML SDV IVPUSH ONE (15:27)
[2021-12-27] MEDS ORDERED: Sodium Chloride 0.9% 10 ML Syringe FLUSH ONE (15:36)
[2021-12-27] MEDS ORDERED: Sodium Chloride 0.9% 75 ML IV SCH (15:45)
[2021-12-27] MEDS ORDERED: Iopamidol 755 Mg/ML 100 ML Bottle IV SCH (15:45)
[2021-12-27 15:54] VITALS: PULSE 89
[2021-12-27 16:17] VITALS: BP 124/68
== END 2021-12-27 17:50 | disposition home or self-care (01) ==
LOC: JP.ED 12:30
DX: R07.89 Other chest pain (principal); F41.9 Anxiety disorder, unspecified; F32.A Depression, unspecified; Z79.899 Other long term (current) drug therapy; Z88.8 Allergy status to other drugs, medicaments and biological substances; Z88.1 Allergy status to other antibiotic agents
CPT/HCPCS: 36415; 71045; 71045-26; 71275; 80053; 80305-QW; 80307; 81001; 83605; 84484; 85025; 93005; 93010; 96372; 96374; 96375; 96376; 99282; 99285-25; A9270-GY; J0171; J1200; J1885; J2060; J2270; J2405; J2930; J3490; Q9967

== ENCOUNTER 2024-05-26 12:09 | Emergency (ER) | payer BC, MEDICAID, OTHER ==
[2024-05-26 12:23] VITALS: BP 138/74; PULSE 81
== END 2024-05-26 14:42 | disposition home or self-care (01) ==
LOC: JP.ED 12:09
DX: S06.0X1A Concussion with loss of consciousness of 30 minutes or less, initial encounter (principal); Z90.49 Acquired absence of other specified parts of digestive tract; Z90.710 Acquired absence of both cervix and uterus; Z79.899 Other long term (current) drug therapy; Z88.5 Allergy status to narcotic agent; Z88.0 Allergy status to penicillin; Z88.1 Allergy status to other antibiotic agents; W07.XXXA Fall from chair, initial encounter
CPT/HCPCS: 70450; 70450-26; 72125; 72125-26; 76377; 76377-26; 99283; 99284

== ENCOUNTER 2024-11-12 08:07 | Day surgery (SDC) | payer OTHER ==
[~2024-11-12 08:07] MED LIST changes: -Bupivacaine 0.5% 50 ML MDV ONE; -Dexamethasone 4 MG/ML SDV ONE; -Glycopyrrolate 0.2 MG/ML 5 ML MDV ONE; -Lidocaine 1% with EPINEPHrine 1:100,000 50 ML MDV ONE; -Meropenem 500 MG SDV ONE; +Midazolam 1 MG/ML 2 ML SDV ONE; -Neostigmine Methylsulfate 1 MG/ML 5 ML Syringe ONE; -Ondansetron 4 MG/2 ML SDV ONE; -Rocuronium 50 MG/5 ML Vial ONE; -Succinylcholine 200 MG/10 ML MDV ONE; +fentaNYL 100 MCG/2 ML SDV ONE; -fentaNYL 250 MCG/5 ML SDV ONE
[2024-11-12] MEDS: MVI, Adult with Vitamin K 10 ML, Thiamine 200 MG, Zinc/Copper/Manganese/Selenium 1 ML i... IV ONE (09:13)
[2024-11-12] MEDS: Lactated Ringers 1,000 ML IV ONE (11:03)
[2024-11-12] MEDS: Cyanocobalamin (Vitamin B12) 1,000 MCG/ML SDV IM ONE (11:50)
[2024-11-12 11:54] VITALS: BP 110/79; PULSE 87
== END 2024-11-12 12:20 | disposition home or self-care (01) ==
LOC: JP.SDS 08:07
PROVIDERS: ATTEND Surgery
DX: R13.10 Dysphagia, unspecified (principal); K21.9 Gastro-esophageal reflux disease without esophagitis; Z98.84 Bariatric surgery status
CPT/HCPCS: 43245; C1726; J2250; J2704; J3010; J3411; J3420; J7120; 00731-QZ; J3490

== ENCOUNTER 2025-08-15 08:16 | Emergency (ER) | payer OTHER ==
[2025-08-15 08:33] LABS: BASOPHILS ABSOLUTE AUTO 0.07 K/uL (0.00-0.10); BASOPHILS PERCENT AUTO 1.0 % (0.1-1.3); EOSINOPHILS ABSOLUTE AUTO 0.16 K/uL (0.00-0.40); EOSINOPHILS PERCENT AUTO 2.4 % (0.0-5.4); IMMATURE GRAN PERCENT AUTO 0.1 % (0.0-0.7); LYMPHOCYTES ABSOLUTE AUTO 2.80 K/uL (0.8-3.3); LYMPHOCYTES PERCENT AUTO 41.2 % (11.4-47.7); MONOCYTES ABSOLUTE AUTO 0.33 K/uL (0.20-0.90); MONOCYTES PERCENT AUTO 4.9 % (3.3-12.6); NEUTROPHILS ABSOLUTE AUTO 3.42 K/uL (1.0-7.6); NEUTROPHILS PERCENT AUTO 50.4 % (40.0-78.1); PLATELET COUNT,PLT 324 K/uL (130-375); RED BLOOD CELL COUNT 4.50 M/uL (3.77-5.24); WHITE BLOOD CELL COUNT,WBC 6.8 K/uL (3.2-11.0)
[2025-08-15 08:36] LABS: IMMATURE GRAN ABSOLUTE AUTO 0.01 K/uL (0.00-0.23)
[2025-08-15] MEDS: Ondansetron 4 MG/2 ML SDV IVPUSH ONE (08:40)
[2025-08-15] MEDS: Ketorolac 30 MG/ML SDV IVPUSH ONE (08:40)
[2025-08-15 08:41] LABS: INR 1.1
[2025-08-15 08:49] LABS: A/G RATIO 1.1 (1.2-2.2); ALANINE AMINOTRANSFERASE,ALT 25 U/L (12-78); ASPARTATE AMNIOTRANSFERASE,AST 18 U/L (15-37); BILIRUBIN TOTAL 0.5 mg/dL (0.2-1.0); BLOOD UREA NITROGEN,BUN 7 mg/dL (7-18); CARBON DIOXIDE,CO2 29 mmol/L (21-32); CHLORIDE,CL 101 mmol/L (100-108); CREATININE 0.8 mg/dL (0.6-1.0); ESTIMATED GFR 88 mL/min (>60); GLUCOSE RANDOM 107 mg/dL (74-106); POTASSIUM,K 3.2 mmol/L (3.6-5.2); PROTEIN TOTAL,TP 7.0 g/dL (6.4-8.2); SODIUM,NA 139 mmol/L (140-148)
[2025-08-15 08:53] LABS: TROPONIN I HIGH SENSITIVITY < 4.0 pg/mL (<=60.3)
[2025-08-15] MEDS: Alum Hydrox/Mag Hydrox/Simeth 15 ML, Lidocaine 2% 15 ML PO ONE (09:39)
[2025-08-15 10:46] VITALS: BP 130/74; PULSE 66
== END 2025-08-15 11:23 | disposition home or self-care (01) ==
LOC: JP.ED 08:16
DX: R07.89 Other chest pain (principal); K21.9 Gastro-esophageal reflux disease without esophagitis; Z88.0 Allergy status to penicillin; Z88.5 Allergy status to narcotic agent; Z79.899 Other long term (current) drug therapy; Z88.8 Allergy status to other drugs, medicaments and biological substances
CPT/HCPCS: 36415; 71045; 80053; 84484; 85025; 85610; 96374; 96375; 99285; J1885; J2405; J3490; 93010; 99284; A9270-GY